=== PATIENT | female | born 1955 | race Caucasian/White ===

== ENCOUNTER 2023-06-04 18:05 | Emergency (ER) | payer OTHER, SELFPAY ==
[2023-06-04 18:19] VITALS: BP 115/67; PULSE 80; RESP 16; TEMP 37.1; O2SAT 100
--- NOTE | 2023-06-04 19:13 | ED.EXTPRO ---
HPI - Extremity Problem General Chief complaint: Extremity Problem,Nontraumatic Stated complaint: Right Finger Swelling Time Seen by Provider: 06/04/23 19:13 Source: patient Mode of arrival: ambulatory Limitations: no limitations History of Present Illness HPI Narrative: 67 y/o female with hx DM presented for c/o redness swelling and pain to right index finger. Onset last night. Denies injury. denies drainage. Reports decreased ROM due to the swelling. States she had a 'nodule' that has not caused any problems. Not taking anything for symptoms. Related Data Home Medications Medication Instructions Recorded Confirmed aspirin 81 mg tablet,delayed 81 mg DIRECTED 06/04/23 06/04/23 release atorvastatin 10 mg tablet 10 mg DIRECTED 06/04/23 06/04/23 dapagliflozin propanediol 5 mg 5 mg DIRECTED 06/04/23 06/04/23 tablet (Farxiga) lisinopril 2.5 mg tablet 2.5 mg DIRECTED 06/04/23 06/04/23 metformin 500 mg tablet 500 mg DIRECTED 06/04/23 06/04/23 Allergies Allergy/AdvReac Type Severity Reaction Status Date / Time No Known Allergies Allergy Verified 06/04/23 18:36 Review of Systems Review of Systems: CONSTITUTIONAL: Denies body aches, fever, chills CARDIOVASCULAR: Denies chest pain, palpitations, or edema. RESPIRATORY: Denies cough or dyspnea. GASTROINTESTINAL: Denies abdominal pain, nausea, vomiting, or diarrhea. SKIN: Denies rash, itching, or wounds. MUSCULOSKELETAL: Reports right finger swelling NEUROLOGIC: Denies headache, numbness, tingling, or weakness. PSYCH: Denies depression or anxiety. All systems reviewed & are unremarkable except as noted in HPI and below PMFSH Past Medical History Medical History (Updated 06/04/23 @ 20:05 by Tamara Garcia APRN) Diabetes Comments At time of signature, I have reviewed and agree with nursing past medical, surgical, social and family history unless otherwise noted. Please see nursing chart for further information. There is no relevant family history pertinent to the presenting complaint Exam Narrative: GENERAL: Well-appearing, well-nourished, and in no acute distress. CHEST: Speaks in full sentences. No respiratory distress. HEART: Regular rate and rhythm. Normal and equal peripheral pulses. EXTREMITIES: Right 2nd digit moderate swelling and erythema from proximal phalanx to tip; tender; pinpoint dried circular area over the DIP. Decreased ROM to finger due to pain/swelling. Hand has normal strength and sensation. Slight chronic deformity at DIP. No drainage. No open wounds, pulse palpable and equal bilaterally, skin warm, dry, pink. Capillary refill less than 3 seconds. SKIN: Warm, dry NEURO: Alert and oriented x3. PSYCH: Normal mood and affect Course Course Emergency Course: Patient is aware of diagnosis, understands and agrees to treatment plan. Anticipatory guidance given. Patient agrees to follow-up as directed and is aware of reasons to seek care at the emergency department. Portions of this record may have been created with voice recognition software Level of Care: Express Care Visit Vital Signs Vital signs: Vital Signs Temperature 98.7 F 06/04/23 18:19 Pulse Rate 80 06/04/23 18:19 Respiratory Rate 16 06/04/23 18:19 Blood Pressure 115/67 06/04/23 18:19 Pulse Oximetry 100 06/04/23 18:19 Temperature 98.7 F 06/04/23 18:19 Pulse Rate 80 06/04/23 18:19 Respiratory Rate 16 06/04/23 18:19 Blood Pressure 115/67 06/04/23 18:19 Pulse Oximetry 100 06/04/23 18:19 Reviewed MDM - Extremity (Nontraumatic) MDM Narrative Medical decision making narrative: Discussed physical exam findings with pt and discussed multiple etiologies. Reviewed Rx and Advised supportive measures. Discussed signs/symptoms to go to the ER at length. Pt is appropriate for outpt treatment and close f/u with pcp. v/u. Differential Diagnosis Differential diagnosis: Likely gout, cellulitis and other (osteoarthritis, rheu
== END 2023-06-04 19:25 | disposition home or self-care (01) ==
PROVIDERS: Emergency Provider Nurse Practitioner Family; PCP Family Medicine
DX: R22.31 Localized swelling, mass and lump, right upper limb (principal); E11.9 Type 2 diabetes mellitus without complications; Z79.84 Long term (current) use of oral hypoglycemic drugs; Z79.82 Long term (current) use of aspirin
CPT/HCPCS: 99213; G0463

== ENCOUNTER 2024-09-03 21:29 | Emergency (ER) | payer OTHER, SELFPAY ==
--- NOTE | ~2024-09-03 | XR_ITS ---
EXAMINATION: XR shoulder RT min 2V DATE: 09/04/2024 01:16 INDICATION: Fall. TECHNIQUE: 2 views of right shoulder were obtained. COMPARISON: None. FINDINGS: Alignment is normal. No fracture. The glenohumeral joint is not well profiled. There is mil d osteoarthritis of acromioclavicular joint. IMPRESSION: 1. Mild osteoarthritis of acromioclavicular joint. Reviewed, dictated and finalized at location A.
--- NOTE | ~2024-09-03 | XR_ITS ---
EXAMINATION: XR chest 1V portable DATE: 09/04/2024 01:16 INDICATION: Syncope. TECHNIQUE: A single frontal view of the chest was obtained. COMPARISON: None. FINDINGS: There is no pneumonia, pleural effusion, or pneumothorax. The heart size is normal. IMPRESSION: 1. No acute cardiopulmonary disease. Reviewed, dictated and finalized at location A.
--- NOTE | ~2024-09-03 | XR_ITS ---
EXAMINATION: XR hip RT 2V w AP pelvis DATE: 09/04/2024 01:16 INDICATION: Right hip pain. Fall. TECHNIQUE: An anteroposterior view the pelvis and 2 views of right hip were obtained. COMPARISON: None. FINDINGS: There is lateral uncovering of the right femoral head, consistent with developmental dyspla rell. There is severe right hip osteoarthritis including flattening of superior aspect of the femoral head. The left hip joint space is normal. There is lumbar levoscoliosis and severe spondylosis. IMPRESSION: 1. Severe right hip osteoarthritis. Reviewed, dictated and finalized at location A.
--- NOTE | 2024-09-03 21:30 | ECG_ITS ---
Test Date: 2024-09-03 21:47:37 Measurements Intervals [place] Rate: 67 P: 60 MN: 168 QRS: 22 QRSD: 92 T: 32 QT: 402 QTc: 427 Interpretive Statements SINUS RHYTHM NORMAL ECG No previous ECG available for comparison Electronically Signed On 09-04-2024 10:00:40 CDT by Nelson Alejandro M.D.
--- OUTSIDE RECORDS SUMMARY | 2024-09-03 21:31 | XMS_ITS | Encounter Summary ---
Author Organization [facility] Healthcare Address [address] [place] [address] Care Team Providers Care Supervisor Vegetable Farming Name Role Phone Zita Fuchs NP Primary Care Provider [phone] Encounter Details Date Type Department Care Team (Late st Contact Info) Description 08/17/[address] [facility] Orthopedics and Sports Medicine [address] [facility] [address] [place] [address] Jonathan Jacques MD [address] [place] [address] [address] [place] [address] Social History Tobacco Use Types Packs/Day Years Used Date Smoking Tobacco: Never Smokeless Tobacco: Never AUDIT-C Answer Date Recorded Q1: How often do you have a drink containing alc ohol? 2-4 times a month 09/01/2024 Q2: How many drinks containi ng alcohol do you have on a typical day when you are drinking? 1 or 2 09/01/2024 Q3: How often do you have si x or more drinks on one occasion? 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 2-4 times a month 09/01/2024 2:29 PM CDT Concetta Glover MA Q2: How many drinks containing alcohol do you have on a typical day when you are drinking? 1 or 2 09/01/2024 2:29 PM CDT Concetta Glover MA Q3: How often do you have six or more drinks on one occasion? Never 09/01/2024 2:29 PM CDT Concetta Glover MA documented as of this encounter Miscellaneous Notes * Telephone Encounter - Cynthia Gupta MA - 09/02/2024 3:42 PM CDT Surgery Clearance received from PCP for RTHA. * Telephone Encounter - Valentine Arellano MA - 08/17/2024 1:07 PM CDT 1. Have you ever had a total joint replacement before? no 2. Have you ever had a problem with anesthesia? vomiting 3. Do you have anyone at home who can care for you? yes 4. Do you have a preference of home health or outpatient therapy for the first two weeks? N/a 5. Lower extremity only Do you own a walker? yes 6. What Pharmacy do you prefer - [facility] 7. What outpatient therapy location do you prefer - N/a 8. Clearance need from: - PCP: Zita Fuchs NP - Pcat Instructor: - Cashier Tube Room: - Sidehand: - Neurologist: - Other: documented in this encounter Plan of Treatment Upcoming Encounters Date Type Department Care Team (Latest Contact Info) Description 09/13/2024 8:20 AM CDT Hospital Encounter [facility] Operating Room [address] [place] [address] Jonathan Jacques MD [address] [place] [address] [address] [facility] [place] [address] 09/13/2024 8:20 AM CDT - 09/13/2024 10:45 AM CDT Surgery [facility] Operating Room [address] [place] [address] Jonathan Jacques MD [address] [place] [address] [address] [place] [address] Right Total Hip Arthroplasty- Anterior Approach, Depuy- Actis, Omnitrac, Aquamantys, 1 liter beta rinse, Pt to go home Scheduled Procedures Name Priority Associated Diagnoses Date/Ti me ARTHROPLASTY TOTAL HIP - ANTERIOR APPROACH Primary osteoarthritis of right hip 09/13/2024 8:20 AM CDT documented as of this encounter Visit Diagnoses Not on filedocumented in this encounter Care Teams Supervisor Vegetable Farming Relationship Specialty Start Date End Date Zita Fuchs NP [address] [facility] [address] [place] [address] PCP - General Family Medicine 09/11/23 documented as of this encounter
--- OUTSIDE RECORDS SUMMARY | 2024-09-03 21:31 | XMS_ITS | Encounter Summary ---
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 2-4 times a month 09/01/2024 2:29 PM Concetta Busch MA Q2: How many drinks containing alcohol do you have on a typical day when you are drinking? 1 or 2 09/01/2024 2:29 PM Concetta Busch MA Q3: How often do you have six or more drinks on one occasion? Never 09/01/2024 2:29 PM Concetta Busch MA documented as of this encounter Medications at Time of Discharge acetaminophen ER (TYLENOL) 650 mg 8 hr tablet Take 1 tablet (650 mg total) by mouth every 8 (eight) hours as needed for pain atorvastatin (LIPITOR) 10 mg tablet 1 p.o. q.h.s. 90 tablet 1 11/18/2023 blood glucose diagnostic (glucose blood) stripIndications:T ype 2 diabetes mellitus with hyperglycemia, without long-term current use of insulin ([facility]) USE ONE STRIP DAILY TO TEST BLOOD SUGAR 100 each 3 04/06/2024 blood-glucose meter miscIndications:Ty pe 2 diabetes mellitus without complication, without long-term current use of insulin ([facility]) USE TO TEST BLOOD SUGAR ONCE DAILY 1 each 12/30/2022 dapagliflozin propanediol (Farxiga) 5 mg tabletIndications: Type 2 diabetes mellitus with hyperglycemia, without long-term current use of insulin ([facility]) Take 1 tablet (5 mg total) by mouth daily 90 tablet 1 09/01/2024 lancets (OneTouch Delica Plus Lancet) 33 gauge miscIndications:Ty pe 2 diabetes mellitus without complication, without long-term current use of insulin ([facility]) 1 each by other route daily 100 each 1 04/01/2023 lisinopriL (PRINIVIL,ZESTRIL) 2.5 mg tablet TAKE 1 TABLET BY MOUTH EVERY DAY 90 tablet 3 02/06/2024 meloxicam (MOBIC) 15 mg tabletIndications: Osteoarthritis TAKE 1 TABLET (15 MG TOTAL) BY MOUTH DAILY. 90 tablet 3 12/03/2023 metFORMIN (GLUCOPHAGE) 500 mg tablet TAKE 1 TABLET BY MOUTH TWICE A DAY 180 tablet 3 02/06/2024 omeprazole (PriLOSEC) 10 mg capsule Take 1 capsule (10 mg total) by mouth daily documented as of this encounter Discharge Disposition Disposition Code Departure Means Destination Discharge to home or self care documented in this encounter Plan of Treatment Upcoming Encounters Date Type Department Care Team (Latest Contact Info) Description 09/13/2024 8:20 AM CDT Hospital Encounter [facility] Operating Room [address] [place] [address] Jonathan Jacques MD [address] [facility] [address] [place] [address] 09/13/2024 8:20 AM CDT - 09/13/2024 10:45 AM CDT Surgery [facility] Operating Room [address] [place] [address] Jonathan Jacques MD [address] [facility] [address] [place] [address] Right Total Hip Arthroplasty- Anterior Approach, Depuy- Actis, Omnitrac, Aquamantys, 1 liter beta rinse, Pt to go home Pending Results Name Type Priority Associated Diagnoses Date /Time XR Chest Pa Lateral 2 Views Imaging Schedule Routine, Read Routine (OP Routine) Pre-operative exam 09/01/2024 8:41 AM CDT Scheduled Orders Name Type Priority Associated Diagnoses Orde r Schedule XR Chest Pa Lateral 2 Views Imaging Schedule Routine, Read Routine (OP Routine) Pre-operative exam Once for 1 Occurrences starting 09/01/2024 until 09/01/2024 Scheduled Procedures Name Priority Associated Diagnoses Date/Ti me ARTHROPLASTY TOTAL HIP - ANTERIOR APPROACH Primary osteoarthritis of right hip 09/13/2024 8:20 AM CDT documented as of this encounter Visit Diagnoses Diagnosis Pre-operative exam Unspecified pre-operative examination Primary osteoarthritis of right hip- Primary Primary osteoarthritis of right hip documented in this encounter Care Teams Commissary Manager Relationship Specialty Start Date End Date Zita Fuchs NP [address] [facility] [address] [place] [address] PCP - General Family Medicine 09/11/23 documented as of this encounter
--- OUTSIDE RECORDS SUMMARY | 2024-09-03 21:31 | XMS_ITS | Clinical Summary ---
Author Organization [facility] Address [address] [place] [address] Care Team Providers Care Electrical Prospecting Engineer Name Role Phone Unavailable Primary Care Provider Unavailabl e Social History Tobacco Use Types Packs/Day Years Used Date Smoking Tobacco: Never Assessed Comments Unknown Sex and Gender Information Value Date Recorded Sex Assigned at Not on file Legal Sex Female 8:27 PM CDT Gender Identity Not on file Sexual Orientation Not on file Plan of Treatment Health Maintenance Due Date Last Done Comments Colorectal Cancer Screening Colonoscopy (10 Years) 1957 Hepatitis C 10/01/1975 DTaP, Tdap and Td Vaccines ( 1 - Tdap) 1976 Mammogram Screening 1997 Zoster Vaccines (1 of 2) 10/01/2007 Dexa Scan (General) 2022 Pneumococcal Vaccine: 65+ Ye ars (1 of 1 - PCV) 2022 COVID-19 Vaccine ( - 2023-2 5 season) 2024 Influenza Adult (#1) 2024 RSV Immunization or 60+ Years (1 - 1-dose 75+ series) 2032 Meningococcal B Vaccine Aged Out No l onger eligible based on patient's age to complete this topic Meningococcal Vaccine Aged Out No angelia gino eligible based on patient's age to complete this topic RSV Immunizations Under 20 Months Aged Out No longer eligible based on patient's age to complete this topic
--- OUTSIDE RECORDS SUMMARY | 2024-09-03 21:31 | XMS_ITS | Encounter Summary ---
Author Organization [facility] Healthcare Address [address] [place] [address] Care Team Providers Care Staff Research Scientist Name Role Phone Zita Fuchs NP Primary Care Provider [phone] Reason for Referral * Cardiology (Routine) - Closed Specialty Diagnoses / Procedures Referred By Jeff carter Referred To Contact Diagnoses Pre-operative exam Procedures ECG 12 lead Jonathan Jacques MD [address] [place] [address] [address] [place] [address] Phone: tel: [address] [phone] Referral ID Status Reason Start Date Expiration Date Visits Re quested Visits Authorized [id number] Closed 08/17/2024 09/16/2025 1 1 Reason for Visit * Cardiology (Routine) - Closed Specialty Diagnoses / Procedures Referred By Jeff carter Referred To Contact Diagnoses Pre-operative exam Procedures ECG 12 lead Jonathan Jacques MD [address] [place] [address] [address] [address] Phone: tel: [address] [phone] Referral ID Status Reason Start Date Expiration Date Visits Re quested Visits Authorized [id number] Closed 08/17/2024 09/16/2025 1 1 Encounter Details Date Type Department Care Team (Latest Contact Info) Description 09/01/2024 9:02 AM CDT - 09/01/2024 11:59 PM CDT Hospital Encounter [facility] Cardiac Testing [address] [place] [address] Pre-operative exam Discharge Disposition: Discharge to home [...] on file 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 Gender Identity Not on file Sexual Orientation Not on file documented as of this encounter Functional Status * Audit-C Score Answer Date of Assessment Author 2 09/01/2024 2:29 PM Sarah Busch MA * Question Answer Date of Assessment [...] hyperglycemia, without long-term current use of insulin (HCC) USE ONE STRIP DAILY TO TEST BLOOD SUGAR 100 each 3 04/06/2024 blood-glucose meter miscIndications:Ty pe 2 diabetes mellitus without complication, without long-term current use of insulin ([facility]) USE TO TEST BLOOD SUGAR ONCE DAILY 1 each 12/30/2022 dapagliflozin propanediol (Farxiga) 5 mg tabletIndications: Type 2 diabetes mellitus with hyperglycemia, without long-term current use of insulin ([facility]) Take 1 tablet (5 mg total) by mouth daily 90 tablet 1 09/01/2024 lancets (OneTouch Delica Plus Lancet) 33 gauge miscIndications:Ty pe 2 diabetes mellitus without complication, without long-term current use of insulin ([facility]) 1 each by other route daily [...] Description 09/13/2024 8:20 AM CDT Hospital Encounter [facility] Operating Room 1 [place] [address] Jonathan Jacques MD [address] [facility] [address] [place] [address] 09/13/2024 8:20 AM CDT - 09/13/2024 10:45 AM CDT Surgery [facility] Operating Room [address] [place] [address] Jonathan Jacques MD [address] [facility] [address] [place] [address] Right Total Hip Arthroplasty- Anterior Approach, Depuy- Actis, Omnitrac, Aquamantys, 1 liter beta rinse, Pt to go home Scheduled Procedures Name Priority Associated Diagnoses Date/Ti la ARTHROPLASTY TOTAL HIP - ANTERIOR APPROACH Primary osteoarthritis of right hip 09/13/2024 8:20 AM CDT documented as of this encounter Procedures Procedure Name Priority Date/Time Associated Diagnosis Comments ECG 12-LEAD Routine 09/01/2024 9:19 AM CDT Pre-operative exam documented in this encounter Results * ECG 12 lead (09/01/2024 9:19 AM CDT) Ventricular Rate EKG/Min 80 BPM [facility] Atrial Rate 80 BPM [facility] NC-Interval (MSEC) 152 ms [facility] QRS-Interval (MSEC) 80 ms [facility] QT-Interval (MSEC) 378 ms [facility] QTc 435 ms [facility] P [place] 63 degrees [facility] R [place] 27 degrees [facility] T [place] 55 degrees [facility] Diagnosis Normal sinus rhythm Normal ECG When compared with ECG of 13-OCT-2014 16:56, No significant change was found Confirmed by BRADEN OVIEDO M.D. ([id number]) on 09/03/2024 2:00:01 PM [facility] 09/01/2024 9:19 AM CDT 09/03/2024 2:00 PM CDT us Jonathan Jacques MD ECG ORDERABLES Final Re sult [facility] documented in this encounter Visit Diagnoses Diagnosis Pre-operative exam Unspecified pre-operative examination Primary osteoarthritis of right hip- Primary Primary osteoarthritis of right hip documented in this encounter Care Teams Staff Research Scientist Relationship Specialty Start Date End Date Zita Fuchs NP [address] [facility] [address] [place] [address] PCP - General Family Medicine 09/11/23 documented as of this encounter
--- OUTSIDE RECORDS SUMMARY | 2024-09-03 21:31 | XMS_ITS | Encounter Summary ---
Author Organization [facility] Healthcare Address [address] [place] [address] Care Team Providers Care Sales Contract Administrator Name Role Phone Unavailable Primary Care Provider Unavailabl e Reason for Visit * Diagnostic Imaging (Routine) - Closed Specialty Diagnoses / Procedures Referred By Contac t Referred To Contact Procedures Breast Imaging Screening Outside Reference Referral, Self Referral ID Status Reason Start Date Expiration Date Visits Re quested Visits Authorized [id number] Closed 01/24/2022 02/23/2023 1 1 Encounter Details Date Type Department Care Team (Late st Contact Info) Description 03/06/2016 Hospital Encounter [facility] [address] [place] [id number] Social History Tobacco Use Types Packs/Day Years [...] on file 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 Gender Identity Not on file Sexual Orientation [...] Glover MA documented as of this encounter Plan of Treatment Upcoming Encounters Date Type Department Care Team (Latest Contact Info) Description 09/13/2024 8:20 AM CDT Hospital Encounter [facility] Operating Room 1 [place] [address] Jonathan Jacques MD [address] [facility] [address] [place] [address] 09/13/2024 8:20 AM CDT - 09/13/2024 10:45 AM CDT Surgery [facility] Operating Room [address] [place] [address] Jonathan Jacques MD [address] [facility] [address] [place] [address] Right Total Hip Arthroplasty- Anterior Approach, Depuy- Actis, Omnitrac, Aquamantys, 1 liter beta rinse, Pt to go home Scheduled Procedures Name Priority Associated Diagnoses Date/Ti me ARTHROPLASTY TOTAL HIP - ANTERIOR APPROACH Primary osteoarthritis of right hip 09/13/2024 8:20 AM CDT documented as of this encounter Procedures Procedure Name Priority Date/Time Associated Diagnosis Comments BREAST IMAGING MG SCREENING OUTSIDE REFERENCE Routine 03/06/2016 12:00 AM CDT documented in this encounter Results * Breast Imaging Screening Outside Reference (03/06/2016 12:00 AM CDT) Impressions RAD_MAMMO_[facility] - 01/24/2022 9:47 AM CDT These images are for Reference purposes only and have not been reviewed by [facility] Radiology. There will be no report generated by a [facility] Radiologist. Narrative RAD_MAMMO_[facility] - 01/24/2022 9:47 AM CDT EXAMINATION: Images For Reference Purposes Only us Self Referral IMG MAMMO PROCEDURES Final Resul t RAD[facility]MAMMO[facility] documented in this encounter Visit Diagnoses Not on filedocumented in this encounter
--- OUTSIDE RECORDS SUMMARY | 2024-09-03 21:31 | XMS_ITS | Clinical Summary ---
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 Name Role Phone LouisZita loco JOYCE Primary Care Provider [phone] Allergies Active Allergy Reactions Criticality Noted Date Comments Codeine Stomach upset Low 10/13/2014 Stomach/GI Upset Medications omeprazole (PriLOSEC) 10 mg capsule Take 1 capsule (10 mg total) by mouth daily Active acetaminophen ER (TYLENOL) 650 mg 8 hr tablet Take 1 tablet (650 mg total) by mouth every 8 (eight) hours as needed for pain Active blood-glucose meter miscIndications: Type 2 diabetes mellitus without complication, without long-term current use of insulin (HCC) USE TO TEST BLOOD SUGAR ONCE DAILY 1 each 3 Active lancets (OneTouch Delica Plus Lancet) 33 gauge miscIndications: Type 2 diabetes mellitus without complication, without long-term current use of insulin (HCC) 1 each by other route daily 100 each 1 3 Active atorvastatin (LIPITOR) 10 mg tablet 1 p.o. q.h.s. 90 tablet 1 4 Active meloxicam (MOBIC) 15 mg tabletIndication s:Osteoarthritis TAKE 1 TABLET (15 MG TOTAL) BY MOUTH DAILY. 90 tablet 3 4 Active lisinopriL (PRINIVIL,ZESTRI L) 2.5 mg tablet TAKE 1 TABLET BY MOUTH EVERY DAY 90 tablet 3 4 Active metFORMIN (GLUCOPHAGE) 500 mg tablet TAKE 1 TABLET BY MOUTH TWICE A DAY 180 tablet 3 4 Active blood glucose diagnostic (glucose blood) stripIndications :Type 2 diabetes mellitus with hyperglycemia, without long-term current use of insulin (HCC) USE ONE STRIP DAILY TO TEST BLOOD SUGAR 100 each 3 4 Active dapagliflozin propanediol (Farxiga) 5 mg tabletIndication s:Type 2 diabetes mellitus with hyperglycemia, without long-term current use of insulin (HCC) Take 1 tablet (5 mg total) by mouth daily 90 tablet 1 5 Active Farxiga 5 mg tabletIndication s:Type 2 diabetes mellitus without complication, without long-term current use of insulin (HCC) TAKE 1 TABLET (5 MG TOTAL) BY MOUTH DAILY. 90 tablet 1 4 09/02/19 Discontinu ed(Reorder ) Active Problems Problem Noted Date Diagnosed Date Primary osteoarthritis of right hip 09/01/2024 Assessment & Plan (09/01/2024 3:37 PM CDT): Scheduled for right total hip replacement due to socket and bone wear. Informed of risks, recovery time, and driving restrictions. Motivated for physical therapy. Surgery planned as outpatient, possible admission for monitoring. Insulin may replace oral diabetes medications if admitted. - Stop meloxicam 5 days before surgery. - Stop dapagliflozin 3 days before surgery. - Stop atorvastatin the day before surgery. - Do not take metformin on the day of surgery. - Continue lisinopril. - Arrange for a walker post-surgery. - Consider outpatient or home physical therapy post-surgery. - Discuss any questions with the surgeon before the operation. Type 2 diabetes mellitus wit h hyperglycemia, without long-term current use of insulin 04/02/2024 Assessment & Plan (09/01/2024 3:37 PM CDT): Stable Lab Results Component Value Date HGBA1C 6.1 (H) 09/01/2024 No results found for: SCRA1C Type 2 Diabetes Mellitus Diabetes well-controlled with A1c of 6.1%. Managed with oral medications. Informed of dietary importance. Insulin may be used if admitted post-surgery. - Continue metformin. - Continue dapagliflozin except as noted for surgery. - Monitor blood glucose levels regularly. Assessment & Plan (04/06/2024 8:57 PM CDT): Not at goal Lab Results Component Value Date HGBA1C 6.9 10/06/2023 Repeat labs ordered Continue metformin 500mg daily and Farxiga 5mg daily Mixed hyperlipidemia 10/06/2023 Assessment & Plan (04/06/2024 9:01 PM CDT): Stable Repeat lipid profile and cmp Lab Results Component Value Date CHOL 137 03/29/2023 CHOL 141 01/04/2023 CHOL 193 12/21/2022 Lab Results Component Value Date HDL 56 03/29/2023 HDL 61 01/04/2023 HDL 56 12/21/2022 Lab Results Component Value Date LDL 66 03/29/2023 LDL 61 01/04/2023 LDL 116 (H) 12/21/2022 Lab Results Component Value Date TRIG 72 03/29/2023 TRIG 109 01/04/2023 TRIG 105 12/21/2022 No results found for: POCCHDLR No results found for: POCNONHDL No results found for: POCCHLPL Continue atorvastatin 10mg HS Assessment & Plan (10/06/2023 4:34 PM CDT): Stable Continue lipitor 10mg Primary hypertension 10/06/2023 Assessment & Plan (04/06/2024 9:01 PM CDT): Stable Repeat labs ordered BP Readings from Last 1 Encounters: 04/06/24 108/67 BP Goal: <64yo: <130/90, 65>: 140/90 Continue lisinopril 2.5mg Assessment & Plan (10/06/2023 4:34 PM CDT): Stable BP at goal Continue lisinopril 2.5mg Eye pain, left 12/26/2022 Overview (12/26/2022): Intermittent See optho no issues at the present time Pain of right hip 12/26/2022 Assessment & Plan (04/06/2024 9:00 PM CDT): Not at goal Advised to keep appt with ortho. May be able to call and be seen sooner. XR Discussed increasing Tylenol to TID PRN, adding topicals to regimen as well Refer to PT Assessment & Plan (10/06/2023 4:33 PM CDT): Not well controlled Continue Tylenol Arthritis. Stop ibuprofen. Start meloxicam 15mg New referral to ortho. Previous xr showed narrowing of joint space Assessment & Plan (12/26/2022 10:42 AM CDT): X ray Chronic issue Worsening Chronic pain of both knees 12/26/2022 Assessment & Plan (04/01/2023 8:03 AM CDT): Severe joint space narrowing in the medial joint of the bilateral knees. I will set her up with ortho Assessment & Plan (12/26/2022 10:44 AM CDT): Chronic worsening X ray b knees Uric acid Rf Merry Sed rate Post-menopause 12/26/2022 Assessment & Plan (12/26/2022 10:47 AM CDT): Check a bone density Primary osteoarthritis of both knees 11/15/2020 Assessment & Plan (04/06/2024 9:00 PM CDT): Not at goal Advised to keep appt with ortho. May be able to call and be seen sooner. Discussed steroid injections do not last long and can be given more frequently if she is getting good relief. Discussed increasing Tylenol to TID PRN, adding topicals to regimen as well Refer to PT Assessment & Plan (10/06/2023 4:33 PM CDT): Not well controlled Continue Tylenol Arthritis. Stop ibuprofen. Start meloxicam 15mg New referral to ortho. Previous xr showed severe OA on L and mild to mod on R Resolved Problems Problem Noted Date Diagnosed Date Resolved Date Annual physical exam 12/26/2022 023 Assessment & Plan (12/26/2022 10:34 AM CDT): Meds reviewed and reconciled Type 2 diabetes mellitus wit hout complication, without long-term current use of insulin 12/26/2022 04/02/2024 Assessment & Plan (10/06/2023 4:32 PM CDT): Controlled A1c 6.9 in office Continue metformin 500mg BID, Farxiga 5mg Assessment & Plan (04/01/2023 8:03 AM CDT): A1c is markedly improved. Assessment & Plan (12/26/2022 10:40 AM CDT): Add metformin 500 mg bid Accuchecks bid Add basa Add lisinopril 2.5 mg Add lipitor 10 mg daily Sma 7 1 week Sma 7 Lipid Lft A1c in 3 months with a uacr Encounters Date Type Department Care Team Description 09/01/2024 2:30 PM CDT Office Visit [facility] [place] [address] [place] [address] Zita Fuchs NP Primary osteoarthritis of right hip (Primary Dx); Type 2 diabetes mellitus with hyperglycemia, without long-term current use of insulin (HCC) 09/01/2024 9:30 AM CDT Lab [facility] [address] [place] [address] Pre-operative exam 09/01/2024 9:02 AM CDT - 09/01/2024 11:59 PM CDT Hospital Encounter [facility] Cardiac Testing [address] [place] [address] Pre-operative exam Discharge Disposition: Discharge to home or self care 09/01/2024 8:25 AM CDT - 09/01/2024 11:59 PM CDT Hospital Encounter [facility] [address] [place] [address] Pre-operative exam Discharge Disposition: Discharge to home or self care 08/18/2024 Telephone [facility] Medicine [address] [place] [address] Jonathan Jacques MD disaiblity paperwork 08/17/2024 10:00 AM CDT Office Visit [facility] [address] [place] [address] [address] [place] [address] Jonathan Jacques MD Pre-operative exam (Primary Dx); Pain in both knees, unspecified chronicity; Primary osteoarthritis of right hip; Primary osteoarthritis of left knee; Primary osteoarthritis of right knee 08/17/2024 7:44 AM CDT - 08/17/2024 11:59 PM CDT Hospital Encounter [facility] [address] [place] [address] [address] [place] [address] Discharge Disposition: Discharge to home or self care 08/17/2024 Telephone [facility] [address] [place] [address] [address] [place] [address] Jonathan Jacques MD 08/17/2024 Telephone [facility] [address] [place] [address] [address] [address] Jonathan Jacques MD 08/10/2024 Telephone [facility] [address] [place] [address] [address] [place] [address] Jonathan Jacques MD Appointment 08/09/2024 3:41 PM STOCK CLERK - 08/09/2024 11:59 PM STOCK CLERK Hospital Encounter [facility] [address] [place] [address] Pain of right hip Discharge Disposition: Discharge to home or self care 08/09/2024 3:15 PM STOCK CLERK Office Visit [facility] [address] [place] [phone] Constantin Cervantes, Primary osteoarthritis of right hip (Primary Dx); Pain of right hip; Primary osteoarthritis of both knees from Last 3 Months Immunizations Immunization Administration Dates Next Due Influenza, Unspecified 03/16/2024,2022,03/28/2022(Deferr ed: Patient Refused) Pfizer SARS-CoV-2 Monovalent Vaccination (12+ Yrs) PURPLE 09/17/2020,08/22/2020 Surgical History Surgery Date Site/Laterality Comments HERNIA REPAIR Right BUNIONECTOMY Bilateral Medical History Medical History Date Comments Diabetes mellitus (HCC) Family History Medical History Relation Name Comments Diabetes Father Heart disease Father Lung disease Mother Breast cancer Sister Colon cancer Neg Hx Ovarian cancer Neg Hx Uterine cancer Neg Hx Relation Name Status Comments Father Mother Sister Alive Social History Tobacco Use Types Packs/Day Years Used Date Smoking Tobacco: Never Smokeless Tobacco: Never Tobacco Cessation:Counseling Given: Not Answered AUDIT-C Answer Date Recorded Q1: How often [...] on file Legal Sex Female 7:05 PM STOCK CLERK Gender Identity Not on file Sexual Orientation Not on file Obstetrics History Para Term AB IAB SAB Ectopic Multiple Livin g Live Births 3 3 3 3 3 Date Outcome GA Total Labor Labor/2nd/3rd Weight Sex Type Anes PTL Lakshmi A1 A5 Name Clin Term Vag-S pont Living Term Vag-S pont Living Term Vag-S pont Living Last Filed Vital Signs Vital Sign Reading Time Taken Comments Blood Pressure 116/78 09/01/2024 2:22 PM CDT Pulse 84 09/01/2024 2:22 PM CDT Temperature 36.7 C (98.1 F) 09/01/2024 2:22 PM CDT Respiratory Rate 18 09/01/2024 2:22 PM CDT Oxygen Saturation 98% 09/01/2024 2:22 PM CDT Inhaled Oxygen Concentration - - Weight 64.2 kg (141 lb 8 oz) 09/01/2024 2:22 PM CDT Height 154.9 cm (5' 0.98 ) 09/01/2024 2:22 PM CD T Body Mass Index 26.75 09/01/2024 2:22 PM CDT Plan of Treatment Upcoming Encounters Date Type Department Care Team (Latest Contact Info) Description 09/13/2024 8:20 AM CDT Hospital Encounter [facility] Operating Room [address] [place] [address] Jonathan Jacques MD [address] [place] [address] [address] [place] [address] 09/13/2024 8:20 AM CDT - 09/13/2024 10:45 AM CDT Surgery [facility] Operating Room [address] [place] [address] Jonathan Jacques MD [address] [place] [address] [address] [place] [address] Right Total Hip Arthroplasty- Anterior Approach, Depuy- Actis, Omnitrac, Aquamantys, 1 liter beta rinse, Pt to go home Scheduled Procedures Name Priority Associated Diagnoses Date/Ti me ARTHROPLASTY TOTAL HIP - ANTERIOR APPROACH Primary osteoarthritis of right hip 09/13/2024 8:20 AM CDT Health Maintenance Due Date Last Done Comments Dilated Eye Exam 1955 Foot Exam 1955 DTaP/Tdap/Td Vaccine (1 - Tdap) 1968 Pneumococcal vaccine 65+ (1 of 2 - PCV) 1976 Zoster Vaccine (1 of 2) 10/01/2007 Covid-19 Vaccine (3 - season) 2024 09/17/2020, 08/22/2020 Breast Cancer Screening-Mammogram 04/01/2024 04/01/2023, 01/21/2022, 03/06/2016, Additional history exists Well Visit 65+ 04/01/2024 04/01/2023, 07/2 , 11/16/2021 Hemoglobin A1C 03/04/2025 09/01/2024, 11/0 02/2024, 10/06/2023, Additional history exists Depression Screening 04/06/2025 04/06/2024, 12/26/2022, 11/16/2021, Additional history exists Fall Risk Assessment 04/06/2025 04/06/2024, 12/27/19 23 Albumin Creatinine Ratio, Urine 04/17/2025 04/17/2024, 03/29/2023, 01/04/2023 Lipid Panel 04/17/2025 04/17/2024, 1006/2022, 01/04/2023, Additional history exists eGFR 09/01/2025 09/01/2024, 0 02/2024, 10/04/2023, Additional history exists Osteoporosis Screening-Bone Density Scan 12/18/2025 12/19/2023 Colon Cancer Screening-Colonoscopy 08/06/2028 Postponed from 1957 (Patient declined, but will receive in the future) Hepatitis C Screening Completed 01/04/2023 Cervical Cancer Screening Discontinued 04/01/2023, Influenza Vaccine Completed 03/16/2024, 03/18/2023 Hepatitis B Screening Completed 04/17/2024 Procedures Procedure Name Priority Date/Time Associated Diagnosis Comments EGFR Routine 09/01/2024 9:43 AM CDT Pre-operative exam DIFFERENTIAL AUTO Routine 09/01/2024 9:4 3 AM CDT Pre-operative exam CBC WITH AUTO DIFFERENTIAL Routine 09/01/2024 9:43 AM CDT Pre-operative exam COMPREHENSIVE METABOLIC PANEL Routine 09/01/2024 9:43 AM CDT Pre-operative exam HEMOGLOBIN A1C Routine 09/01/2024 9:43 AM CDT Pre-operative exam URINALYSIS AND REFLEX TO MICROSCOPIC AND CULTURE Routine 09/01/2024 9:33 AM CDT Pre-operative exam ECG 12-LEAD Routine 09/01/2024 9:19 AM CDT Pre-operative exam XR HIP RIGHT W PELVIS 2 OR 3 VIEWS Schedule Routine, Read Routine (OP Routine) 08/09/2024 3:49 PM STOCK CLERK Pain of right hip LIPID PANEL Routine 04/17/2024 9:20 AM STOCK CLERK Mixed hyperlipidemia ALBUMIN CREATININE RATIO, URINE Routine 04/17/2024 9:20 AM STOCK CLERK Type 2 diabetes mellitus with hyperglycemia, without long-term current use of insulin (HCC) DEXA AXIAL SKELETON BONE DENSITY 1 OR MORE SITES Schedule Routine, Read Routine (OP Routine) 12/19/2023 8:15 AM CDT Post-menopausal SCREENING MAMMOGRAM BILATERAL W GUIDO Schedule Routine, Read Routine (OP Routine) 04/01/2023 3:12 PM CDT Encounter for screening mammogram for malignant neoplasm of breast HIGH RISK HPV DNA DETECTION WITH GENOTYPING Routine 04/01/2023 1:50 PM CDT Well woman exam HEPATITIS C ANTIBODY Routine 01/04/2023 7:31 AM CDT from Last 3 Months or Most Recently Relevant to Health Maintenance Results * eGFR (09/01/2024 9:43 AM CDT) eGFR >90 >=60 mL/min/1. 73 m2 Comment: Interpretive Data Reference Interval Normal >/= 90 mL/min/1.73m2 Mildly decreased* 60 - 89 mL/min/1.73m2 Mildly to moderately decreased 45 - 59 mL/min/1.73m2 Moderately to severely decreased 30 - 44 mL/min/1.73m2 Severely decreased 15 - 29 mL/min/1.73m2 Kidney Failure < 15 mL/min/1.73m2 *Relative to young adult level Estimated glomerular filtration rate is determined by the 2020 CKD-EPI equation recommended by the National Kidney Foundation (A Unifying Approach to GFR Estimation: Recommendations of the NKF-ASK Task Force on Reassessing the Inclusion of Race in Diagnosing Kidney Disease, JASN 2020). The CKD-EPI equation should not be used for patients with unstable renal function and has not been validated in children and those over 70. Current interpretive data was last reviewed 2021. Blood 09/01/2024 9:43 AM CDT 09/01/2024 10:08 AM CDT Jonathan Jacques MD LAB BLOOD ORDERABLES Fin al Result [facility] [address] Department [place] [address] * (ABNORMAL) Differential, auto (09/01/2024 9:43 AM CDT) Neutrophil abs 5.5 1.5 - 6.5 K/cumm Imm gran abs 0.0 0.0 - 0.1 K/cumm [facility] Lymphocyte abs 0.7(L) 0.8 - 3.3 K/cumm [facility] Monocyte abs 0.5 0.2 - 0.8 K/cumm [facility] Eosinophil abs 0.1 0.0 - 0.5 K/cumm [facility] Basophil abs 0.0 0.0 - 0.1 K/cumm [facility] Neutrophil pct 80.7 % [facility] Comment: Interpretive Data Percent cell count reference ranges are not reported, since discordance with absolute values may lead to misinterpretation of CBC data. Current Interpretive Data was last revised on 2017. Imm gran pct 0.3 % [facility] Comment: Interpretive Data Percent cell count reference ranges are not reported, since discordance with absolute values may lead to misinterpretation of CBC data. Current Interpretive Data was last revised on 2017. Lymphocyte pct 10.3 % [facility] Comment: Interpretive Data Percent cell count reference ranges are not reported, since discordance with absolute values may lead to misinterpretation of CBC data. Current Interpretive Data was last revised on 2017. Monocyte pct 6.7 % [facility] Comment: Interpretive Data Percent cell count reference ranges are not reported, since discordance with absolute values may lead to misinterpretation of CBC data. Current Interpretive Data was last revised on 2017. Eosinophil pct 1.6 % [facility] Comment: Interpretive Data Percent cell count reference ranges are not reported, since discordance with absolute values may lead to misinterpretation of CBC data. Current Interpretive Data was last revised on 2017. Basophil pct 0.4 % [facility] Comment: Interpretive Data Percent cell count reference ranges are not reported, since discordance with absolute values may lead to misinterpretation of CBC data. Current Interpretive Data was last revised on 2017. Blood 09/01/2024 9:43 AM CDT 09/01/2024 10:08 AM CDT Jonathan Jacques MD LAB BLOOD ORDERABLES Fin al Result Performing Organization Address [facility] Co de Phone Number ARI [address] [place] [address] * CBC with auto differential (09/01/2024 9:43 AM CDT) WBC 6.9 3.8 - 9.9 K/cumm Hgb 14.2 11.9 - 15.5 g/dL [facility] Hct 41.5 35.6 - 45.5 % [facility] Plt 281 150 - 400 K/cumm [facility] MPV 9.2 9.1 - 12.3 fL [facility] RBC 4.41 3.90 - 5.20 M/cumm [facility] MCV 94.1 81.3 - 96.4 fL [facility] MCH 32.2 27.1 - 33.3 pg [facility] MCHC 34.2 32.3 - 35.7 g/dL [facility] RDW CV 11.9 11.1 - 14.9 % [facility] RDW SD 41.6 35.7 - 48.1 fL [facility] NRBC abs 0.00 0.00 - 0.01 K/cumm [facility] Blood 09/01/2024 9:43 AM CDT 09/01/2024 10:08 AM CDT Jonathan Jacques MD LAB BLOOD ORDERABLES Fin al Result Performing Organization Address [facility]/ZIP Co de Phone Number ARI [address] [place] [address] * (ABNORMAL) Hemoglobin A1c (09/01/2024 9:43 AM CDT) Hgb A1C 6.1(H) 4.0 - 5.6 % Estimated Average Glucose 128 mg/dL [facility] Comment: The ADA recommends reporting an estimated Average Glucose (eAG) with all Hemoglobin A1c results using the equation derived from a study of 507 normal and diabetic adults. Minority populations were underrepresented and children were not included. (Diabetes Care 31:4493-8957, 2008). The eAG is not equivalent to a fasting glucose. Blood 09/01/2024 9:43 AM CDT 09/01/2024 10:08 AM CDT Jonathan Jacques MD LAB BLOOD ORDERABLES Fin al Result [facility] [address] Department [place] [address] * Comprehensive metabolic panel (09/01/2024 9:43 AM CDT) Sodium 140 135 - 145 mmol/L Potassium, pl 4.1 3.3 - 4.9 mmol/L [facility] Chloride 103 97 - 110 mmol/L [facility] CO2 25 22 - 32 mmol/L [facility] Anion gap 12 2 - 15 mmol/L [facility] BUN 19 6 - 25 mg/dL [facility] Creatinine 0.63 0.60 - 1.10 mg/dL [facility] Glucose 110 70 - 199 mg/dL [facility] Comment: Interpretive Data Fasting glucose >/= 126 mg/dl is diagnostic for diabetes. Fasting is defined as no caloric intake for at least 8 hours. Fasting glucose between 100 mg/dl to 125 mg/dl is diagnostic of prediabetes. In a patient with classic symptoms of hyperglycemia or hyperglycemic crisis, a random glucose >/= 200 mg/dl is diagnostic for diabetes. In the absence of unequivocal hyperglycemia, results should be confirmed by repeat testing. The classification and Diagnosis of Diabetes Diabetes Care 202; 46: S19-S40. Current interpretive data was last revised 2022. Calcium 9.7 8.5 - 10.3 mg/dL [facility] Bilirubin, total 0.3 0.1 - 1.2 mg/dL [facility] Protein, pl 7.7 6.5 - 8.5 g/dL [facility] Albumin 4.4 3.5 - 5.0 g/dL [facility] Alk phos 91 40 - 130 Units/L [facility] ALT 18 7 - 45 Units/L [facility] AST 18 10 - 45 Units/L [facility] Blood 09/01/2024 9:43 AM CDT 09/01/2024 10:08 AM CDT Jonathan Jacques MD LAB BLOOD ORDERABLES Fin al Result Performing Organization Address [facility] de Phone Number ARI [address] [place] [phone] * Urinalysis reflex to microscopic and culture Urine (09/01/2024 9:33 AM CDT) Color, ur Yellow Yellow Clarity, ur Clear Clear [facility] Specific gravity, ur 1.016 1.003 - 1.030 [facility] pH, urine 6.5 [facility] Comment: Interpretive Data U rine pH is affected by diet, medications, systemic acid-base disturbances, and renal tubular function. pH may affect urinary stone formation. For example, urine pH below 6.0 may help reduce the tendency for calcium phosphate stones and pH greater than 6.0 may reduce the tendency for uric acid stone formation. Source: [facility] Current Interpretive Data was last revised on 2017 Protein, ur ql Negative Negative [facility] Glucose, ur ql Negative Negative [facility] Ketones, ur Trace Negative [facility] Bilirubin, ur Negative Negative [facility] Blood, ur Negative Negative [facility] Urobilinogen, ur <2.0 <2.0 mg/dL [facility] Nitrite, ur Negative Negative [facility] Leukocyte esterase, ur Negative Negative [facility] UA reflex comment Reflex conditions for microscopic UA and culture not met. [facility] Urine 09/01/2024 9:33 AM CDT 09/01/2024 10:13 AM CDT Jonathan Jacques MD LAB MICROBIOLOGY - GENER AL ORDERABLES Final Result Performing Organization Address [facility] Co de Phone Number ARI [address] [place] [address] [place] [address] * ECG 12 lead (09/01/2024 9:19 AM CDT) Ventricular Rate EKG/Min 80 BPM [facility] Atrial Rate 80 BPM [facility] NC-Interval (MSEC) 152 ms [facility] QRS-Interval (MSEC) 80 ms [facility] QT-Interval (MSEC) 378 ms [facility] QTc 435 ms [facility] [facility] P [place] 63 degrees [facility] R [place] 27 degrees [facility] T [place] 55 degrees [facility] Diagnosis Normal sinus rhythm Normal ECG When compared with ECG of 13-OCT-2014 16:56, No significant change was found Confirmed by BRADEN OVIEDO M.D. ([id number]) on 09/03/2024 2:00:01 PM [facility] 09/01/2024 9:19 AM CDT 09/03/2024 2:00 PM CDT us Jonathan Jacques MD ECG ORDERABLES Final Re sult [facility] * XR Hip Right 2 or 3 Views W Pelvis (08/09/2024 3:49 PM STOCK CLERK) Anatomical Region Laterality Modality Lower Extremities, Hip, Pelvis Right C omputed Radiography 08/12/2024 12:3 4 PM STOCK CLERK Narrative 08/12/2024 12:35 PM STOCK CLERK EXAM DESCRIPTION: XR HIP RIGHT 2 OR 3 VIEWS W PELVIS REASON FOR STUDY: pain Increased general hip pain for 6 months, no injury FINDINGS: Two views of the right hip and pelvis are submitted for interpretation and compared to prior 12/26/2022. Worsened severe right hip arthrosis is present with worsened collapse and remodeling of the superolateral femoral head and remodeling of the acetabulum. Mild left hip osteoarthritis. Superolateral subluxation of the femoral head is present. IMPRESSION: Worsened severe right hip arthrosis with worsened collapse and remodeling of the superolateral femoral head, remodeling of the acetabulum and subluxation of the femoral head. These findings are all likely secondary to progressive severe right hip osteoarthritis. However, if concern for infection, aspiration is recommended. THIS IS AN ELECTRONICALLY VERIFIED FINAL REPORT 08/12/2024 12:35 PM - Electronically signed by Stas Garcia M.D. TH T: Report ID: [id number] Reading Location: [id number] Procedure Note Stas Garcia MD - 08/12/2024 EXAM DESCRIPTION: XR HIP RIGHT 2 OR 3 VIEWS W PELVIS REASON FOR STUDY: pain Increased general hip pain for 6 months, no injury FINDINGS: Two views of the right hip and pelvis are submitted for interpretation and compared to prior 12/26/2022. Worsened severe right hip arthrosis is present with worsened collapse and remodeling of the superolateral femoral head and remodeling of theacetabulum. Mild left hip osteoarthritis. Superolateral subluxation of the femoralhead is present. IMPRESSION: Worsened severe right hip arthrosis with worsened collapse and remodelingof the superolateral femoral head, remodeling of the acetabulum andsubluxation of the femoral head. These findings are all likely secondary toprogressive severe right hip osteoarthritis. However, if concern for infection, aspiration is recommended. THIS IS AN ELECTRONICALLY VERIFIED FINAL REPORT 08/12/2024 12:35 PM - Electronically signed by Stas Garcia M.D. T: Report ID: [id number] Reading Location: [place] [address] Constantin Cervantes DO IMG XR PROCEDURES Final Result * (ABNORMAL) Albumin Creatinine Ratio, Urine (04/17/2024 9:20 AM STOCK CLERK) Creatinine, ur 17(L) 20 - 275 mg/dL [facility] Microalbumin, ur <0.2 See Note: mg/dL [facility] Comment: Reference Range: Reference Range Not established Microalbumin/creat ratio NOTE <30 mg/g creat [facility] Comment: NOTE: The urine albumin value is less than 0.2 mg/dL therefore we are unable to calculate excretion and/or creatinine ratio. The ADA defines abnormalities in albumin excretion as follows: Albuminuria Category Result (mg/g creatinine) Normal to Mildly increased <30 Moderately increased 30-299 Severely increased > OR = 300 The ADA recommends that at least two of three specimens collected within a 3-6 month period be abnormal before considering a patient to be within a diagnostic category. Urine 04/17/2024 9:2 0 AM STOCK CLERK 04/17/2024 9:21 AM STOCK CLERK Narrative [facility] - 04/18/2024 8:19 AM STOCK CLERK FASTING:YES FASTING: YES us Zita Fuchs BRICK CATCHER LAB URINE ORDERABLES Final Re sult YUAN [facility] [address] [id number] * Lipid panel (04/17/2024 9:20 AM STOCK CLERK) Cholesterol 163 <200 mg/dL [facility] HDL 59 > OR = 50 mg/dL [facility] Triglycerides 89 <150 mg/dL [facility] LDL 86 mg/dL (calc) [facility] Comment: Reference range: <100 Desirable range <100 mg/dL for primary prevention; <70 mg/dL for patients with CHD or diabetic patients with > or = 2 CHD risk factors. LDL-C is now calculated using the Rich-Ramirez calculation, which is a validated novel method providing better accuracy than the Friedewald equation in the estimation of LDL-C. Rich SS et al. RY. 2013;310(19): 7662-0157 (http://education.Lingua.ly/faq/BZI902) Chol/HDL ratio 2.8 <5.0 (calc) [facility] Non-HDL, (LDL+VLDL) 104 <130 mg/dL (calc) [facility] Comment: For patients with diabetes plus 1 major ASCVD risk factor, treating to a non-HDL-C goal of <100 mg/dL (LDL-C of <70 mg/dL) is considered a therapeutic option. Blood 04/17/2024 9:20 AM STOCK CLERK 04/17/2024 9:21 AM STOCK CLERK Narrative [facility] - 04/18/2024 8:19 AM STOCK CLERK FASTING:YES FASTING: YES us Zita Fuchs NP LAB BLOOD ORDERABLES Final Re sult [facility] [address] [address] [facility] [place] [address] * Dexa Axial Skeleton Bone Density 1 or 2 Site (12/19/2023 8:15 AM CDT) Anatomical Region Laterality Modality Body N/A Mammography 12/19/2023 9:10 PM CDT Narrative 12/19/2023 9:11 PM CDT EXAM DESCRIPTION: DEXA AXIAL SKELETON BONE DENSITY 1 OR MORE SITES REASON FOR STUDY: 68 y/o year old F with given history of: post menopausal Eyeletter/Model: Leadhit A (S/N [id number]) CLINICAL INFORMATION: Current height: 62 inches Maximum height: 64 inches Weight: 148 pounds Risk factors: Postmenopausal COMPARISON: None available FINDINGS: AP LUMBAR SPINE L1-L4: Total BMD is 0.872 g/cm2 T-score is -1.6 LEFT HIP: Total BMD is 0.732 g/cm2 T-score is -1.7 Femoral neck BMD is 0.660 g/cm2 T-score is -1.7 FRAX: 10 year risk for a major osteoporotic fracture is 9.4 %, 10 year risk for a hip fracture is 1.1 % IMPRESSION: Low Bone Mass. REFERENCE: Bone mineral density: T-Score: Normal (T-score above or = -1.0) Low bone mass (T-score between -1.0 and -2.5) replaces the previously used term osteopenia Osteoporosis (T-score = or below -2.5) Z-Score: Within the expected range for age (Z-score above -2.0) Below the expected range for age (Z-score is -2.0 or below) Please see below follow up recommendations. Medical evaluation for secondary causes of low bone mineral density may be appropriate. FRAX is a World Health Organization validated fracture risk assessment tool that calculates a person's 10 year probability of a major osteoporosis related fracture and hip fracture. According to the National Osteoporosis Foundation guidelines, postmenopausal women and men age 50 or older with low bone mass and a 10 year probability of a major osteoporosis related fracture = or greater than 20% or a 10 year probability of a hip fracture = or greater than 3% should be considered for pharmacological treatment for the prevention of osteoporosis. For further information, including treatment recommendations, please refer to the 2019 ISCD Official Positions (http://www.iscd.org) and the NOF's Clinician's Guide to Prevention and Treatment of Osteoporosis (http://www.nof.org/professionals/clinical-guidelines) THIS IS AN ELECTRONICALLY VERIFIED FINAL REPORT 12/19/2023 9:11 PM - Electronically signed by Jimenez Jordan M.D. MF: YESI Report ID: [id number] Reading Location: [id number] Procedure Note Jimenez Jordan MD - 12/19/2023 EXAM DESCRIPTION: DEXA AXIAL SKELETON BONE DENSITY 1 OR MORE SITES REASON FOR STUDY: 68 y/o year old F with given history of: post menopausal Eyeletter/Model: Leadhit A (S/N [id number]) CLINICAL INFORMATION: Current height: 62 inches Maximum height: 64 inches Weight: 148 pounds Risk factors: Postmenopausal COMPARISON: None available FINDINGS: AP LUMBAR SPINE L1-L4: Total BMD is 0.872 g/cm2 T-score is -1.6 LEFT HIP: Total BMD is 0.732 g/cm2 T-score is -1.7 Femoral neck BMD is 0.660 g/cm2 T-score is -1.7 FRAX: 10 year risk for a major osteoporotic fracture is 9.4 %, 10 year risk fora hip fracture is 1.1 % IMPRESSION: Low Bone Mass. REFERENCE: Bone mineral density: T-Score: Normal (T-score above or = -1.0) Low bone mass (T-score between -1.0 and -2.5) replaces thepreviously used term osteopenia Osteoporosis (T-score = or below -2.5) Z-Score: Within the expected range for age (Z-score above -2.0) Below the expected range for age (Z-score is -2.0 or below) Please see below follow up recommendations. Medical evaluation forsecondary causes of low bone mineral density may be appropriate. FRAX is a World Health Organization validated fracture risk assessmenttool that calculates a person's 10 year probability of a major osteoporosisrelated fracture and hip fracture. According to the National OsteoporosisFoundation guidelines, postmenopausal women and men age 50 or older with low bonemass and a 10 year probability of a major osteoporosis related fracture = or greater than 20% or a 10 year probability of a hip fracture = or greaterthan 3% should be considered for pharmacological treatment for the preventionof osteoporosis. For further information, including treatment recommendations, please referto the 2019 ISCD Official Positions (http://www.iscd.org) and the NOF's Clinician's Guide to Prevention and Treatment of Osteoporosis (http://www.nof.org/professionals/clinical-guidelines) THIS IS AN ELECTRONICALLY VERIFIED FINAL REPORT 12/19/2023 9:11 PM - Electronically signed by Jimenez Jordan M.D. MF: YESI Report ID: [id number] Reading Location: [place] [address] Zita Fuchs BRICK CATCHER IMG DXA PROCEDURES Final Resu lt * Screening Mammogram Bilateral W Guido (04/01/2023 3:12 PM CDT) Anatomical Region Laterality Modality Breast Bilateral Mammography Narrative 04/02/2023 10:46 AM CDT Mammogram Technique: Bilateral Digital Breast Tomosynthesis, Bilateral C-view 2D Screening mammogram. Views obtained: bilateral craniocaudal and bilateral mediolateral oblique. Computer Aided Detection was performed. Mammogram Findings: The present examination has been compared to prior imaging studies performed at [facility] on 12/30/2005 and 01/21/2022, and at [facility] on 03/06/2016. The breasts are heterogeneously dense, which may obscure small masses. There is no suspicious abnormality in either breast. Impression: There is no mammographic evidence of malignancy. Annual screening mammography is recommended.If supplemental screening is desired, breast MRI would be recommended in this patient with heterogeneously dense breasts. OVERALL FINAL ASSESSMENT: BI-RADS CATEGORY 1: Negative. Procedure Note Shobha Umana MD - 04/02/2023 Mammogram Technique: Bilateral Digital Breast Tomosynthesis, Bilateral C-view 2D Screening mammogram. Views obtained: bilateral craniocaudal and bilateral mediolateral oblique. Computer Aided Detection was performed. Mammogram Findings: The present examination has been compared to prior imaging studies performed at [facility] on 12/30/2005 and 01/21/2022, and at [facility] on 03/06/2016. The breasts are heterogeneously dense, which may obscure small masses. There is no suspicious abnormality in either breast. Impression: There is no mammographic evidence of malignancy. Annual screening mammography is recommended.If supplemental screening is desired, breast MRI would be recommended in this patient with heterogeneously dense breasts. OVERALL FINAL ASSESSMENT: BI-RADS CATEGORY 1: Negative. Prem Caballero DO IMG MAMMO PROCEDURES Fin al Result * High Risk HPV DNA Detection with Genotyping (Molecular component) (04/01/2023 1:50 PM CDT) HPV HR 16 Not Detected Not Detected [facility] Comment:Testing performed by : [facility], [address] [place]., [address] HPV HR 18 Not Detected Not Detected [facility] Comment:Testing performed by : [facility], [address] [place]., [address] HPV HR Non 16/18 Not Detected Not Detected [facility] Comment: Interpretive Data Nucleic acid amplification for detection of high-risk Human Papilloma virus (HPV) is performed by the [employer] 6800 HPV test. This assay specifically detects HPV-16 and HPV-18 genotypes. The following HPV genotypes are detected as high-risk HPV: HPV-31, 33, 35, ,39, 45, 51, 52, 56, 58, 59, 66, and 68. This assay has been approved by the [place] Food and Drug Administration for detection of HPV in cervical specimens collected by a physician using an endocervical brush/spatula or cervical broom and placed in the ThinPrep Pap Test PreservCyt collection containers. The performance characteristics of this test have been verified by the [facility] Molecular Infectious Disease laboratory. Correlate with separately reported cytology results, as applicable. Interpretive data last revised 23 Testing performed by: [facility], [address] [facility], [place]., [address] Endocervical 04/01/2023 1:50 PM CDT 04/02/2023 7:35 PM CDT Narrative [facility] - 04/03/2023 3:00 AM CDT Clinical history and diagnosis->Routine Number of vials->1 Testing type->Screening Last menstrual period (date if known)->PM us Gwendolyn Rose MD LAB BODY FLUIDS AND STOOLS ORDERABLES Final Result [facility] [address] [facility] Department [place] [address] * Hepatitis C antibody (01/04/2023 7:31 AM CDT) Hep C Ab NON-REACTI VE NON-REACT [facility] Comment: HCV antibody was non-reactive. There is no laboratory evidence of HCV infection. In most cases, no further action is required. However, if recent HCV exposure is suspected, a test for HCV RNA (test code 27801) is suggested. 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
--- OUTSIDE RECORDS SUMMARY | 2024-09-03 21:31 | XMS_ITS | Referral Summary ---
Author Organization [facility] Address [address] [place] [address] Care Team Providers Care Second Miller Name Role Phone Zita Fuchs NP Primary Care Provider [phone] Encounters Date Type Department Care Team Description 09/01/2024 9:30 AM CDT Lab [facility] [address] [place] [id number] Pre-operative exam 09/01/2024 9:02 AM CDT - 09/01/2024 11:59 PM CDT Hospital Encounter [facility] Cardiac Testing [address] [place] [address] Pre-operative exam Discharge Disposition: Discharge to home or self care 09/01/2024 8:25 AM CDT - 09/01/2024 11:59 PM CDT Hospital Encounter [facility] Diagnostic Imaging [address] [place] [address] Pre-operative exam Discharge Disposition: Discharge to home or self care 09/01/2024 2:30 PM CDT Office Visit [facility] [place] [address] [place] [phone] Zita Fuchs NP Primary osteoarthritis of right hip (Primary Dx); Type 2 diabetes mellitus with hyperglycemia, without long-term current use of insulin (HCC) 08/18/[address] [facility] [address] [place] [address] Jonathan Jacques MD disaiblity paperwork 08/17/2024 Telephone [facility] [address] [place] [address] [address] [place] [address] Jonathan Jacques MD 08/17/2024 Telephone [facility] [address] [place] [address] [address] [place] [address] Jonathan Jacques MD 08/17/2024 7:44 AM CDT - 08/17/2024 11:59 PM CDT Hospital Encounter [facility] [address] [place] [address] [address] [address] Discharge Disposition: Discharge to home or self care 08/17/2024 10:00 AM CDT Office Visit [facility] [address] [place] [address] [address] [address] Jonathan Jacques MD Pre-operative exam (Primary Dx); Pain in both knees, unspecified chronicity; Primary osteoarthritis of right hip; Primary osteoarthritis of left knee; Primary osteoarthritis of right knee 08/10/2024 Telephone [facility] [address] [place] [address] [address], [place] [address] Jonathan Jacques MD Appointment 08/09/2024 3:41 PM [employer] - 08/09/2024 11:59 PM [employer] Hospital Encounter [facility] [address] [place] [address] Pain of right hip Discharge Disposition: Discharge to home or self care 08/09/2024 3:15 PM [employer] Office Visit [facility] [address] [place] [phone] Constantin Cervantes DO Primary osteoarthritis of right hip (Primary Dx); Pain of right hip; Primary osteoarthritis of both knees from Last 3 Months Allergies Active Allergy Reactions Criticality Noted Date [...] complication, without long-term current use of insulin ([facility]) USE TO TEST BLOOD SUGAR ONCE DAILY 1 each 3 Active lancets (OneTouch Delica Plus Lancet) 33 gauge miscIndications: Type 2 diabetes mellitus without complication, without long-term current use of insulin ([facility]) 1 each by other route daily 100 [...] hyperglycemia, without long-term current use of insulin ([facility]) USE ONE STRIP DAILY TO TEST BLOOD SUGAR 100 each 3 4 Active dapagliflozin propanediol (Farxiga) 5 mg tabletIndication s:Type 2 diabetes mellitus with hyperglycemia, without long-term current use of insulin ([facility]) Take 1 tablet (5 mg total) by mouth daily 90 tablet 1 5 Active Farxiga 5 mg tabletIndication s:Type 2 diabetes mellitus without complication, without long-term current use of insulin ([facility]) TAKE 1 TABLET (5 MG TOTAL) BY MOUTH DAILY. 90 tablet 1 4 09/02/19 25 Discontinu ed(Reorder ) Active Problems Problem Noted [...] A1c in 3 months with a uacr Immunizations Immunization Administration Dates Next Due Influenza, Unspecified 03/16/2024,2022,03/28/2022(Deferr ed: Patient Refused) Tab Asia SARS-CoV-2 Monovalent Vaccination (12+ Yrs) PURPLE 09/17/2020,08/22/2020 Social History Tobacco Use Types Packs/Day Years [...] on file Legal Sex Female 7:05 PM [employer] Gender Identity Not on file Sexual Orientation Not on file Last Filed Vital Signs Vital Sign Reading [...] 09/13/2024 8:20 AM CDT Hospital Encounter [facility] [address] [place] [address] Jonathan Jacques MD [address] [address] 09/13/2024 8:20 AM CDT - 09/13/2024 10:45 AM CDT Surgery [facility] [address] [place] [address] Jonathan Jacques MD [address] [place] [address] [place] [address] Right Total Hip Arthroplasty- Anterior Approach, Depuy- Actis, Omnitrac, Aquamantys, 1 liter beta rinse, Pt to go home Scheduled Procedures Name Priority Associated Diagnoses Date/Ti me ARTHROPLASTY TOTAL HIP - ANTERIOR APPROACH Primary osteoarthritis of right hip 09/13/2024 8:20 AM CDT Procedures Procedure Name Priority Date/Time Associated Diagnosis [...] Read Routine (OP Routine) 08/09/2024 3:49 PM [employer] Pain of right hip LIPID PANEL Routine 04/17/2024 9:20 AM [employer] Mixed hyperlipidemia ALBUMIN CREATININE RATIO, URINE Routine 04/17/2024 9:20 AM [employer] Type 2 diabetes mellitus with hyperglycemia, without [...] 9:43 AM CDT 09/01/2024 10:08 AM CDT us Jonathan Jacques MD LAB BLOOD ORDERABLES Fin al Result [facility] [address] Department [place] [address] * (ABNORMAL) Differential, auto (09/01/2024 9:43 AM [...] 9:43 AM CDT 09/01/2024 10:08 AM CDT us Jonathan Jacques MD LAB BLOOD ORDERABLES Fin al Result [facility] [address] Department [place] [address] * CBC with auto differential (09/01/2024 9:43 AM CDT) [facility] WBC 6.9 3.8 - 9.9 K/cumm Hgb [...] MD LAB BLOOD ORDERABLES Fin al Result [facility] [address] [facility] Department [place] [address] * (ABNORMAL) Hemoglobin A1c (09/01/2024 9:43 AM CDT) [facility] Hgb A1C 6.1(H) 4.0 - 5.6 % Estimated Average Glucose 128 mg/dL [facility] Comment: The ADA recommends reporting an estimated Average Glucose (eAG) with all Hemoglobin A1c results using the equation derived from a study of 507 normal and diabetic adults. Minority populations were underrepresented and children were not included. (Diabetes Care 31:7688-2823, 2008). The eAG is not equivalent to a fasting glucose. Blood 09/01/2024 9:43 AM CDT 09/01/2024 10:08 AM CDT us Jonathan Jacques MD LAB BLOOD ORDERABLES Fin al Result Performing Organization Address City/[facility]/ZIP Co de Phone Number [facility] [address] Department [place] [address] * Comprehensive metabolic panel (09/01/2024 9:43 AM [...] ORDERABLES Fin al Result Performing Organization Address [facility]/ZIP Co de Phone Number [facility] [address] [facility] [place] [address] * Urinalysis reflex to microscopic and culture [...] tendency for uric acid stone formation. Source: [facility] Current Interpretive Data was last revised on [...] MICROBIOLOGY - GENER AL ORDERABLES Final Result [facility] [address] Department [place] [address] * ECG 12 lead (09/01/2024 9:19 AM CDT) Ventricular Rate EKG/Min 80 BPM [facility] Atrial Rate [address] [facility] NM-Interval (MSEC) [address] [facility] QRS-Interval (MSEC) [address] [facility] QT-Interval (MSEC) [address] [facility] QTc [address] [facility] P Ignacio [address] [facility] R Ignacio [address] [facility] T Ignacio [address] [facility] Diagnosis Normal sinus rhythm Normal ECG When compared with ECG of 13-OCT-2014 16:56, No significant change was found Confirmed by BRADEN VOIEDO M.D. ([id number]) on 09/03/2024 2:00:01 PM [facility] 09/01/2024 9:19 AM CDT 09/03/2024 2:00 PM CDT us Jonathan Jacques MD ECG ORDERABLES Final Re sult [facility] [employer] [facility] * XR Hip Right 2 or 3 Views W Pelvis (08/09/2024 3:49 PM INSPECT[employer]) Anatomical Region Laterality Modality Lower Extremities, Hip, Pelvis Right C omputed Radiography 08/12/2024 12:3 4 PM [employer] Narrative 08/12/2024 12:35 PM [employer] EXAM DESCRIPTION: XR HIP RIGHT 2 OR [...] by Stas Garcia M.D. T: Report ID: [id number] Reading Location: [id number] Procedure Note Stas Garcia MD - 08/12/2024 [...] by Stas Garcia M.D. T: Report ID: [id number] Reading Location: [place] [address] Constantin Cervantes DO IMG XR PROCEDURES Final Result * (ABNORMAL) Albumin Creatinine Ratio, Urine (04/17/2024 9:20 AM INSPECT[employer]) Creatinine, ur 17(L) 20 - 275 mg/dL [...] be within a diagnostic category. Urine 04/17/2024 9:20 AM [employer] 04/17/2024 9:21 AM [employer] Narrative [facility] - 04/18/2024 8:19 AM [employer] FASTING:YES FASTING: YES Zita Fuchs [employer] [facility] LAB URINE ORDERABLES Final Re sult Performing Organization Address City/State/[facility] Co de Phone Number [facility] [address] [address] * Lipid panel (04/17/2024 9:20 AM INSPECT[employer]) Cholesterol 163 <200 mg/dL [facility] [...] factors. LDL-C is now calculated using the Trinity calculation, which is a validated novel method providing better accuracy than the Friedewald equation in the estimation of LDL-C. Rich BEEBE et al. RY. 2013;310(19): 6564-2192 (http://education.Recochem/faq/KGP734) Chol/HDL ratio 2.8 <5.0 (calc) [facility] Non-HDL, (LDL+VLDL) 104 <130 mg/dL (calc) [facility] Comment: For patients with diabetes plus 1 major ASCVD risk factor, treating to a non-HDL-C goal of <100 mg/dL (LDL-C of <70 mg/dL) is considered a therapeutic option. Blood 04/17/2024 9:20 AM [employer] 04/17/2024 9:21 AM [employer] Narrative [facility] - 04/18/2024 8:19 AM [employer] FASTING:YES FASTING: YES Zita Fuchs [employer] [facility] LAB BLOOD ORDERABLES Final An fitzpatrick Performing Organization Address [facility] Co de Phone Number [facility] [address] [address] * Dexa Axial Skeleton Bone Density 1 or 2 Site (12/19/2023 8:15 AM CDT) Anatomical Region Laterality Modality Body N/A Mammography 12/19/2023 9:10 PM CDT Narrative 12/19/2023 9:11 PM CDT EXAM DESCRIPTION: DEXA AXIAL SKELETON BONE DENSITY 1 OR MORE SITES REASON FOR STUDY: 68 y/o year old F with given history of: 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 MF: YESI Report ID: [id number] Reading Location: [id number] us Zita Shila [employer] IMG DXA PROCEDURES Final Resu lt * [...] compared to prior imaging studies performed at [facility] on 12/30/2005 and 01/21/2022, and at [facility] on 03/06/2016. The breasts are heterogeneously dense, [...] compared to prior imaging studies performed at [facility] on 12/30/2005 and 01/21/2022, and at [facility] on 03/06/2016. The breasts are heterogeneously dense, [...] HR 16 Not Detected Not Detected [facility] GARCIA Comment:Testing performed by : [facility], [address] [place]., [address] HPV HR 18 Not Detected Not Detected ARI Comment:Testing performed by : [facility], [address] [place]., [address] HPV HR Non 16/18 Not Detected Not [...] this test have been verified by the [facility] Molecular Infectious Disease laboratory. Correlate with separately reported cytology results, as applicable. Interpretive data last revised 22 Testing performed by: [facility], [address] [place]., [address] Endocervical 04/01/2023 1:50 PM CDT 04/02/2023 7:35 PM CDT Narrative [facility] - 04/03/2023 3:00 AM CDT Clinical history and diagnosis->Routine Number of vials->1 Testing type->Screening Last menstrual period (date if known)->PM Gwendolyn Rose MD LAB BODY FLUIDS AND STOOLS ORDERABLES Final Result [facility] [address] [facility] [facility] Department [place] [address] * Hepatitis C antibody (01/04/2023 7:31 AM CDT) Hep C Ab NON-REACTI VE NON-REACT [email or web address] Comment: HCV antibody was non-reactive. There is no laboratory evidence of HCV infection. In most cases, no further action is required. However, if recent HCV exposure is suspected, a test for HCV RNA (test code 32760) is suggested. For additional information please refer to http://education.Markafoni/faq/QDH35f3 (This link is being provided for informational/ educational purposes only.) 01/04/2023 7:31 AM CDT 01/04/2023 7:33 AM CDT [facility] - 01/09/2023 12:35 PM CDT FASTING:YES FASTING: YES Prem Caballero DO LAB MICROBIOLOGY - GENER AL ORDERABLES Final Result [email or web address] [address] [place] [address] from Last 3 Months or Most Recently Relevant to Health Maintenance Insurance [facility] CIGNA MEDICARE CIGNA Care Teams Second Miller Relationship Specialty Start Date End Date Zita Fuchs NP [address] [place] [address] PCP - General Family Medicine 09/11/23
[2024-09-03 21:50] VITALS: BP 107/52; PULSE 69; RESP 18; TEMP 36.3; O2SAT 100
[2024-09-04] VITALS (18 sets, daily range): BP systolic 99–124; BP diastolic 50–70; PULSE 71–88; RESP 11–25; O2SAT 93–100
--- OUTSIDE RECORDS SUMMARY | 2024-09-04 00:06 | XMS_ITS | Clinical Summary ---
Author Organization [facility] Office Center Address [address] [place] [address] Care Team Providers Care Fitness Assistant Name Role Phone LouisZita loco JOYCE Primary Care Provider Allergies Active Allergy Reactions Criticality Noted Date [...] Description 09/01/2024 2:30 PM CDT Office Visit [facility] [place] [address] [facility] [address] [place] [address] Zita Fuchs NP Primary osteoarthritis of right hip (Primary Dx); Type 2 diabetes mellitus with hyperglycemia, without long-term current use of insulin (HCC) 09/01/2024 9:30 AM CDT Lab [facility] [address] [place] [address] Pre-operative exam 09/01/2024 9:02 AM CDT - 09/01/2024 11:59 PM CDT Hospital Encounter [facility] Cardiac Testing [address] [place] [address] Pre-operative exam Discharge Disposition: Discharge to home or self care 09/01/2024 8:25 AM CDT - 09/01/2024 11:59 PM CDT Hospital Encounter [facility] Diagnostic Imaging [address] [place] [address] Pre-operative exam Discharge Disposition: Discharge to home or self care 08/18/2024 Telephone [facility] Orthopedics and Sports Medicine [address] [facility] [address] [address] [place] [address] Jonathan Jacques MD disaiblity paperwork 08/17/2024 10:00 AM CDT Office Visit [facility] Sports Medicine [address] [place] [address] [address] [place] [address] Joanthan Jacques MD Pre-operative exam (Primary Dx); Pain in both knees, unspecified chronicity; Primary osteoarthritis of right hip; Primary osteoarthritis of left knee; Primary osteoarthritis of right knee 08/17/2024 7:44 AM CDT - 08/17/2024 11:59 PM CDT Hospital Encounter [facility] Medicine [address] [place] [address] [address] [place] [address] Discharge Disposition: Discharge to home or self care 08/17/2024 Telephone [facility] Orthopedics and Sports Medicine [address] [place] [address] [address] [place] [address] Jonathan Jacques MD 08/17/2024 Telephone [facility] Orthopedics and Sports Medicine [address] [place] [address] [address], [place] [address] Jonathan Jacques MD 08/10/2024 Telephone [facility] Orthopedics and Sports Medicine [address] [place] [address] [address] [place] [address] Jonathan Jacques MD Appointment 08/09/2024 3:41 PM FACE BOSS - 08/09/2024 11:59 PM FACE BOSS Hospital Encounter [facility] Diag Imaging [address] [place] [address] Pain of right hip Discharge Disposition: Discharge to home or self care 08/09/2024 3:15 PM FACE BOSS Office Visit [facility] Medicine [address] [place] [phone] Constantin Cervantes, Primary osteoarthritis of right hip [...] on file Legal Sex Female 7:05 PM FACE BOSS Gender Identity Not on file Sexual Orientation [...] Description 09/13/2024 8:20 AM CDT Hospital Encounter [facility] Operating Room [address] [place] [address] Jonathan Jacques MD [address] [place] [address] [address] [place] [address] 09/13/2024 8:20 AM CDT - 09/13/2024 10:45 AM CDT Surgery [facility] Operating Room [address] [place] [address] Jonathan Jacques MD [address] [place] [address] [address] [place] [address] Right Total Hip Arthroplasty- Anterior Approach, Depuy- [...] Read Routine (OP Routine) 08/09/2024 3:49 PM FACE BOSS Pain of right hip LIPID PANEL Routine 04/17/2024 9:20 AM FACE BOSS Mixed hyperlipidemia ALBUMIN CREATININE RATIO, URINE Routine 04/17/2024 9:20 AM FACE BOSS Type 2 diabetes mellitus with hyperglycemia, without [...] LAB BLOOD ORDERABLES Fin al Result [facility] [address] [facility] [address] Department [place] [address] * (ABNORMAL) Differential, auto (09/01/2024 9:43 AM CDT) Neutrophil abs 5.5 1.5 - 6.5 K/cumm Imm gran abs 0.0 0.0 - 0.1 K/cumm [facility] Lymphocyte abs 0.7(L) 0.8 - 3.3 K/cumm [facility] Monocyte abs 0.5 0.2 - 0.8 K/cumm [facility] Eosinophil abs 0.1 0.0 - 0.5 K/cumm [facility] Basophil abs 0.0 0.0 - 0.1 K/cumm [facility] Neutrophil pct 80.7 % [facility] Comment: Interpretive Data Percent cell count reference ranges are not reported, since discordance with absolute values may lead to misinterpretation of CBC data. Current Interpretive Data was last revised on 2017. Imm gran pct 0.3 % [facility] Comment: Interpretive Data Percent cell count reference ranges are not reported, since discordance with absolute values may lead to misinterpretation of CBC data. Current Interpretive Data was last revised on 2017. Lymphocyte pct 10.3 % [facility] Comment: Interpretive Data Percent cell count reference ranges are not reported, since discordance with absolute values may lead to misinterpretation of CBC data. Current Interpretive Data was last revised on 2017. Monocyte pct 6.7 % [facility] Comment: Interpretive Data Percent cell count reference ranges are not reported, since discordance with absolute values may lead to misinterpretation of CBC data. Current Interpretive Data was last revised on 2017. Eosinophil pct 1.6 % [facility] Comment: Interpretive Data Percent cell count reference ranges are not reported, since discordance with absolute values may lead to misinterpretation of CBC data. Current Interpretive Data was last revised on 2017. Basophil pct 0.4 % [facility] Comment: Interpretive Data Percent cell count reference ranges are not reported, since discordance with absolute values may lead to misinterpretation of CBC data. Current Interpretive Data was last revised on 2017. Blood 09/01/2024 9:43 AM CDT 09/01/2024 10:08 AM CDT Jonathan Jacques MD LAB BLOOD ORDERABLES Fin al Result Performing Organization Address [facility] Co de Phone Number ARI [address] [employer] [place] [address] * CBC with auto differential (09/01/2024 9:43 AM CDT) WBC 6.9 3.8 - 9.9 K/cumm Hgb 14.2 11.9 - 15.5 g/dL [facility] Hct 41.5 35.6 - 45.5 % [facility] Plt 281 150 - 400 K/cumm [facility] MPV 9.2 9.1 - 12.3 fL [facility] RBC 4.41 3.90 - 5.20 M/cumm [facility] MCV 94.1 81.3 - 96.4 fL [facility] MCH 32.2 27.1 - 33.3 pg [facility] MCHC 34.2 32.3 - 35.7 g/dL [facility] RDW CV 11.9 11.1 - 14.9 % [facility] RDW SD 41.6 35.7 - 48.1 fL [facility] NRBC abs 0.00 0.00 - 0.01 K/cumm [facility] Blood 09/01/2024 9:43 AM CDT 09/01/2024 10:08 AM CDT Jonathan Jacques MD LAB BLOOD ORDERABLES Fin al Result Performing Organization Address [facility]/ZIP Co de Phone Number ARI [address] [employer] [place] [address] * (ABNORMAL) Hemoglobin A1c (09/01/2024 9:43 AM CDT) Hgb A1C 6.1(H) 4.0 - 5.6 % Estimated Average Glucose 128 mg/dL [facility] Comment: The ADA recommends reporting an estimated Average Glucose (eAG) with all Hemoglobin A1c results using the equation derived from a study of 507 normal and diabetic adults. Minority populations were underrepresented and children were not included. (Diabetes Care 31:6524-4865, 2008). The eAG is not equivalent to a fasting glucose. Blood 09/01/2024 9:43 AM CDT 09/01/2024 10:08 AM CDT Jonathan Jacques MD LAB BLOOD ORDERABLES Fin al Result [facility] [address] [facility] [address] [facility] Department [place] [address] * Comprehensive metabolic panel (09/01/2024 9:43 AM CDT) Sodium 140 135 - 145 mmol/L Potassium, pl 4.1 3.3 - 4.9 mmol/L [facility] Chloride 103 97 - 110 mmol/L [facility] CO2 25 22 - 32 mmol/L [facility] Anion gap 12 2 - 15 mmol/L [facility] BUN 19 6 - 25 mg/dL [facility] Creatinine 0.63 0.60 - 1.10 mg/dL [facility] Glucose 110 70 - 199 mg/dL [facility] Comment: Interpretive Data Fasting glucose >/= [...] 2022. Calcium 9.7 8.5 - 10.3 mg/dL [facility] Bilirubin, total 0.3 0.1 - 1.2 mg/dL [facility] Protein, pl 7.7 6.5 - 8.5 g/dL [facility] Albumin 4.4 3.5 - 5.0 g/dL [facility] Alk phos 91 40 - 130 Units/L [facility] ALT 18 7 - 45 Units/L [facility] AST 18 10 - 45 Units/L [facility] Blood 09/01/2024 9:43 AM CDT 09/01/2024 10:08 AM CDT Jonathan Jacques MD LAB BLOOD ORDERABLES Fin al Result Performing Organization Address [facility] de Phone Number ARI [address] [place] [address] * Urinalysis reflex to microscopic and culture Urine (09/01/2024 9:33 AM CDT) Color, ur Yellow Yellow Clarity, ur Clear Clear [facility] Specific gravity, ur 1.016 1.003 - 1.030 [facility] pH, urine 6.5 [facility] Comment: Interpretive Data U rine pH is affected by diet, medications, systemic acid-base disturbances, and renal tubular function. pH may affect urinary stone formation. For example, urine pH below 6.0 may help reduce the tendency for calcium phosphate stones and pH greater than 6.0 may reduce the tendency for uric acid stone formation. Source: [facility] Current Interpretive Data was last revised on 2017 Protein, ur ql Negative Negative [facility] Glucose, ur ql Negative Negative [facility] Ketones, ur Trace Negative [facility] Bilirubin, ur Negative Negative [facility] Blood, ur Negative Negative [facility] Urobilinogen, ur <2.0 <2.0 mg/dL [facility] Nitrite, ur Negative Negative [facility] Leukocyte esterase, ur Negative Negative [facility] UA reflex comment Reflex conditions for microscopic UA and culture not met. [facility] Urine 09/01/2024 9:33 AM CDT 09/01/2024 10:13 AM CDT Jonathan Jacques MD LAB MICROBIOLOGY - GENER AL ORDERABLES Final Result Performing Organization Address [facility] Co de Phone Number ARI [address] [place] [address] [place] [address] * ECG 12 lead (09/01/2024 9:19 AM CDT) Ventricular Rate EKG/Min 80 BPM [facility] Atrial Rate 80 BPM [facility] [place]-Interval (MSEC) 152 ms [facility] QRS-Interval (MSEC) 80 ms [facility] QT-Interval (MSEC) 378 ms [facility] QTc 435 ms [facility] P [place] 63 degrees [facility] R [place] 27 degrees [facility] T [place] 55 degrees [facility] Diagnosis Normal sinus rhythm Normal ECG When compared with ECG of 13-OCT-2014 16:56, No significant change was found Confirmed by BRADEN OVIEDO M.D. ([id number]) on 09/03/2024 2:00:01 PM [facility] 09/01/2024 9:19 AM CDT 09/03/2024 2:00 PM CDT us Jonathan Jacques MD ECG ORDERABLES Final Re sult [facility] * XR Hip Right 2 or 3 Views W Pelvis (08/09/2024 3:49 PM FACE BOSS) Anatomical Region Laterality Modality Lower Extremities, Hip, Pelvis Right C omputed Radiography 08/12/2024 12:3 4 PM FACE BOSS Narrative 08/12/2024 12:35 PM FACE BOSS EXAM DESCRIPTION: XR HIP RIGHT 2 OR [...] Stas Garcia M.D. TH T: Report ID: [id number] Reading Location: [id number] Procedure Note Stas Garcia MD - 08/12/2024 [...] by Stas Garcia M.D. T: Report ID: [id number] Reading Location: [place] [address] Constantin Cervantes DO IMG XR PROCEDURES Final Result * (ABNORMAL) Albumin Creatinine Ratio, Urine (04/17/2024 9:20 AM FACE BOSS) Creatinine, ur 17(L) 20 - 275 mg/dL [...] diagnostic category. Urine 04/17/2024 9:2 0 AM FACE BOSS 04/17/2024 9:21 AM FACE BOSS Narrative [facility] - 04/18/2024 8:19 AM FACE BOSS FASTING:YES FASTING: YES us Zita Fuchs OUTSOLE CEMENTER MACHINE LAB URINE ORDERABLES Final Re sult YUAN [facility] [address] [place] [address] * Lipid panel (04/17/2024 9:20 AM FACE BOSS) Cholesterol 163 <200 mg/dL [facility] [...] LDL-C. Rich SS et al. RY. 2013;310(19): 1316-5939 (http://education.[employer]/faq/KCV737) Chol/HDL ratio 2.8 <5.0 (calc) [facility] Non-HDL, (LDL+VLDL) 104 <130 mg/dL (calc) [facility] Comment: For patients with diabetes plus 1 major ASCVD risk factor, treating to a non-HDL-C goal of <100 mg/dL (LDL-C of <70 mg/dL) is considered a therapeutic option. 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 MF: YESI Report ID: [id number] Reading Location: [place] [address] Zita Fuchs OUTSOLE CEMENTER MACHINE IMG DXA PROCEDURES Final Resu lt * [...] compared to prior imaging studies performed at [facility] on 12/30/2005 and 01/21/2022, and at [facility] on 03/06/2016. The breasts are heterogeneously dense, [...] compared to prior imaging studies performed at [facility] on 12/30/2005 and 01/21/2022, and at [facility] on 03/06/2016. The breasts are heterogeneously dense, [...] Not Detected ARI Comment:Testing performed by : [facility], [address] [place]., [address] HPV HR 18 Not Detected Not Detected ARI Comment:Testing performed by : [facility], [address] [place]., [address] HPV HR Non 16/18 Not Detected Not [...] this test have been verified by the [facility] Molecular Infectious Disease laboratory. Correlate with separately reported cytology results, as applicable. Interpretive data last revised 23 Testing performed by: [facility], [address] [facility], [place]., [address] Endocervical 04/01/2023 1:50 PM CDT 04/02/2023 7:35 PM CDT Narrative [facility] - 04/03/2023 3:00 AM CDT Clinical history and diagnosis->Routine Number of vials->1 Testing type->Screening Last menstrual period (date if known)->PM us Gwendolyn Rose MD LAB BODY FLUIDS AND STOOLS ORDERABLES Final Result [facility] [address] [facility] Department of [place] [address] * Hepatitis C antibody (01/04/2023 7:31 AM CDT) Hep C Ab NON-REACTI VE NON-REACT [facility] Comment: HCV antibody was non-reactive. There is no laboratory evidence of HCV infection. In most cases, no further action is required. However, if recent HCV exposure is suspected, a test for HCV RNA (test code 44428) is suggested. For additional information please refer to http://education.[employer]/faq/PMQ41g5 (This link is being provided for informational/ educational purposes only.) 01/04/2023 7:31 AM CDT 01/04/2023 7:33 AM CDT Narrative [facility] - 01/09/2023 12:35 PM CDT FASTING:YES FASTING: YES us Prem Caballero DO LAB MICROBIOLOGY - GENER AL ORDERABLES Final Result [facility] [address] [address] from Last 3 Months or Most Recently Relevant to Health Maintenance Insurance [employer] CIGNA MEDICARE CIGNA Care Teams Fitness Assistant Relationship Specialty Start Date End Date Zita Fuchs NP [address] [facility] [address] [address] PCP - General Family Medicine 09/11/23
--- OUTSIDE RECORDS SUMMARY | 2024-09-04 00:06 | XMS_ITS | Referral Summary ---
Author Organization [facility] Address [address] [place] [address] Care Team Providers Care Tapering Machine Operator Name Role Phone Zita Fuchs NP Primary Care Provider Encounters Date Type Department Care Team Description 09/01/2024 9:30 AM CDT Lab [facility] Lab [address] [place] [address] Pre-operative exam 09/01/2024 9:02 AM CDT - 09/01/2024 11:59 PM CDT Hospital Encounter [facility] Cardiac Testing [address] [place] [address]878 Pre-operative exam Discharge Disposition: Discharge to home or self care 09/01/2024 8:25 AM CDT - 09/01/2024 11:59 PM CDT Hospital Encounter [facility] Diagnostic Imaging [address] [place] [address]65 Pre-operative exam Discharge Disposition: Discharge to home or self care 09/01/2024 2:30 PM CDT Office Visit [facility] [place] [address] [place] [phone] Zita Fuchs NP Primary osteoarthritis of right hip (Primary Dx); Type 2 diabetes mellitus with hyperglycemia, without long-term current use of insulin (HCC) 08/18/2024 Telephone [facility] [address] [place] [address] Jonathan Jacques MD disaiblity paperwork 08/17/2024 Telephone [facility] [address] [place] [address] [address] [place] [address] Jonathan Jacques MD 08/17/2024 Telephone [facility] [address] [place] [address] [address] [place] [address] Jonathan Jacques MD 08/17/2024 7:44 AM CDT - 08/17/2024 11:59 PM CDT Hospital Encounter [facility] [address] [place] [address] [address] [address] Discharge Disposition: Discharge to home or self care 08/17/2024 10:00 AM CDT Office Visit [facility] [address] [place] [address] [address] [address] Jonathan Jacques MD Pre-operative exam (Primary Dx); Pain in both knees, unspecified chronicity; Primary osteoarthritis of right hip; Primary osteoarthritis of left knee; Primary osteoarthritis of right knee 08/10/2024 Telephone [facility] [address] [place] [address] [address] [address] Jonathan Jacques MD Appointment 08/09/2024 3:41 PM CRAB FISHERMAN - 08/09/2024 11:59 PM CRAB FISHERMAN Hospital Encounter [facility] Di[facility] Imaging [address] [place] [address] Pain of right hip Discharge Disposition: Discharge to home or self care 08/09/2024 3:15 PM CRAB FISHERMAN Office Visit [facility] [address] [place] [phone] Constantin Cervantes DO Primary osteoarthritis of right [...] complication, without long-term current use of insulin ([facility]) USE TO TEST BLOOD SUGAR ONCE DAILY 1 each 3 Active lancets (OneTouch Delica Plus Lancet) 33 gauge miscIndications: Type 2 diabetes mellitus without complication, without long-term current use of insulin ([facility]) 1 each by other route [...] hyperglycemia, without long-term current use of insulin ([facility]) USE ONE STRIP DAILY TO TEST BLOOD SUGAR 100 each 3 4 Active dapagliflozin propanediol (Farxiga) 5 mg tabletIndication s:Type 2 diabetes mellitus with hyperglycemia, without long-term current use of insulin ([facility]) Take 1 tablet (5 mg total) by mouth daily 90 tablet 1 5 Active Farxiga 5 mg tabletIndication s:Type 2 diabetes mellitus without complication, without long-term current use of insulin ([facility]) TAKE 1 TABLET (5 MG [...] Due Influenza, Unspecified 03/16/2024,2022,03/28/2022(Deferr ed: Patient Refused) Crzyfish SARS-CoV-2 Monovalent Vaccination (12+ Yrs) PURPLE 09/17/2020,08/22/2020 [...] on file Legal Sex Female 7:05 PM CRAB FISHERMAN Gender Identity Not on file Sexual Orientation [...] 09/13/2024 8:20 AM CDT Hospital Encounter [facility] Operating Room [address] [place] [address] Jonathan Jacques MD [address] [place] [address] 09/13/2024 8:20 AM CDT - 09/13/2024 10:45 AM CDT Surgery [facility] Operating Room [address] [place] [address] Jonathan Jacques MD [address] [place] [address] [place] [address] Right Total Hip Arthroplasty- Anterior Approach, Depuy- [...] Read Routine (OP Routine) 08/09/2024 3:49 PM CRAB FISHERMAN Pain of right hip LIPID PANEL Routine 04/17/2024 9:20 AM CRAB FISHERMAN Mixed hyperlipidemia ALBUMIN CREATININE RATIO, URINE Routine 04/17/2024 9:20 AM CRAB FISHERMAN Type 2 diabetes mellitus with hyperglycemia, without [...] LAB BLOOD ORDERABLES Fin al Result ARI [address] Department [place] [address] * (ABNORMAL) Differential, auto (09/01/2024 9:43 AM CDT) Neutrophil abs 5.5 1.5 - 6.5 K/cumm Imm gran abs 0.0 0.0 - 0.1 K/cumm [facility] Lymphocyte abs 0.7(L) 0.8 - 3.3 K/cumm [facility] Monocyte abs 0.5 0.2 - 0.8 K/cumm [facility] Eosinophil abs 0.1 0.0 - 0.5 K/cumm [facility] Basophil abs 0.0 0.0 - 0.1 K/cumm [facility] Neutrophil pct 80.7 % [facility] Comment: Interpretive Data Percent cell count reference ranges are not reported, since discordance with absolute values may lead to misinterpretation of CBC data. Current Interpretive Data was last revised on 2017. Imm gran pct 0.3 % [facility] Comment: Interpretive Data Percent cell count reference ranges are not reported, since discordance with absolute values may lead to misinterpretation of CBC data. Current Interpretive Data was last revised on 2017. Lymphocyte pct 10.3 % [facility] Comment: Interpretive Data Percent cell count reference ranges are not reported, since discordance with absolute values may lead to misinterpretation of CBC data. Current Interpretive Data was last revised on 2017. Monocyte pct 6.7 % [facility] Comment: Interpretive Data Percent cell count reference ranges are not reported, since discordance with absolute values may lead to misinterpretation of CBC data. Current Interpretive Data was last revised on 2017. Eosinophil pct 1.6 % [facility] Comment: Interpretive Data Percent cell count reference ranges are not reported, since discordance with absolute values may lead to misinterpretation of CBC data. Current Interpretive Data was last revised on 2017. Basophil pct 0.4 % [facility] Comment: Interpretive Data Percent cell count reference ranges are not reported, since discordance with absolute values may lead to misinterpretation of CBC data. Current Interpretive Data was last revised on 2017. Blood 09/01/2024 9:43 AM CDT 09/01/2024 10:08 AM CDT us Jonathan Jacques MD LAB BLOOD ORDERABLES Fin al Result ARI [address] Department [place] [address] * CBC with auto differential (09/01/2024 9:43 AM CDT) [facility] WBC 6.9 3.8 - 9.9 K/cumm Hgb 14.2 11.9 - 15.5 g/dL [facility] Hct 41.5 35.6 - 45.5 % [facility] Plt 281 150 - 400 K/cumm [facility] MPV 9.2 9.1 - 12.3 fL [facility] RBC 4.41 3.90 - 5.20 M/cumm [facility] MCV 94.1 81.3 - 96.4 fL [facility] MCH 32.2 27.1 - 33.3 pg [facility] MCHC 34.2 32.3 - 35.7 g/dL [facility] RDW CV 11.9 11.1 - 14.9 % [facility] RDW SD 41.6 35.7 - 48.1 fL [facility] NRBC abs 0.00 0.00 - 0.01 K/cumm [facility] Blood 09/01/2024 9:43 AM CDT 09/01/2024 10:08 AM CDT Jonathan Jacques MD LAB BLOOD ORDERABLES Fin al [facility] [address] Department [place] [address] * (ABNORMAL) Hemoglobin A1c (09/01/2024 9:43 AM CDT) [facility] Hgb A1C 6.1(H) 4.0 - 5.6 % Estimated Average Glucose 128 mg/dL [facility] Comment: The ADA recommends reporting an estimated Average Glucose (eAG) with all Hemoglobin A1c results using the equation derived from a study of 507 normal and diabetic adults. Minority populations were underrepresented and children were not included. (Diabetes Care 31:8178-2278, 2008). The eAG is not equivalent to a fasting glucose. Blood 09/01/2024 9:43 AM CDT 09/01/2024 10:08 AM CDT us Jonathan Jacques MD LAB BLOOD ORDERABLES Fin al Result Performing Organization Address City/[facility]/ZIP Co de Phone Number ARI [address] Department [place] [address] * Comprehensive metabolic panel (09/01/2024 9:43 AM CDT) Sodium 140 135 - 145 mmol/L Potassium, pl 4.1 3.3 - 4.9 mmol/L [facility] Chloride 103 97 - 110 mmol/L [facility] CO2 25 22 - 32 mmol/L [facility] Anion gap 12 2 - 15 mmol/L [facility] BUN 19 6 - 25 mg/dL [facility] Creatinine 0.63 0.60 - 1.10 mg/dL [facility] Glucose 110 70 - 199 mg/dL [facility] Comment: Interpretive Data Fasting glucose >/= 126 [...] 2022. Calcium 9.7 8.5 - 10.3 mg/dL [facility] Bilirubin, total 0.3 0.1 - 1.2 mg/dL [facility] Protein, pl 7.7 6.5 - 8.5 g/dL [facility] Albumin 4.4 3.5 - 5.0 g/dL [facility] Alk phos 91 40 - 130 Units/L [facility] ALT 18 7 - 45 Units/L [facility] AST 18 10 - 45 Units/L [facility] Blood 09/01/2024 9:43 AM CDT 09/01/2024 10:08 AM CDT Jonathan Jacques MD LAB BLOOD ORDERABLES Fin al Result Performing Organization Address [facility]/ZIP Co de Phone Number ARI MH [address] [facility] [place] [address] * Urinalysis reflex to microscopic and culture Urine (09/01/2024 9:33 AM CDT) Color, ur Yellow Yellow Clarity, ur Clear Clear [facility] Specific gravity, ur 1.016 1.003 - 1.030 [facility] pH, urine 6.5 [facility] Comment: Interpretive Data U rine pH is affected by diet, medications, systemic acid-base disturbances, and renal tubular function. pH may affect urinary stone formation. For example, urine pH below 6.0 may help reduce the tendency for calcium phosphate stones and pH greater than 6.0 may reduce the tendency for uric acid stone formation. Source: [facility] Current Interpretive Data was last revised on 2017 Protein, ur ql Negative Negative [facility] Glucose, ur ql Negative Negative [facility] Ketones, ur Trace Negative [facility] Bilirubin, ur Negative Negative [facility] Blood, ur Negative Negative [facility] Urobilinogen, ur <2.0 <2.0 mg/dL [facility] Nitrite, ur Negative Negative [facility] Leukocyte esterase, ur Negative Negative [facility] UA reflex comment Reflex conditions for microscopic UA and culture not met. [facility] Urine 09/01/2024 9:33 AM CDT 09/01/2024 10:13 AM CDT Jonathan Jacques MD LAB MICROBIOLOGY - GENER AL ORDERABLES Final Result ARI [address] Department [place] [address] * ECG 12 lead (09/01/2024 9:19 AM CDT) Ventricular Rate EKG/Min 80 BPM [facility] Atrial Rate 80 BPM [facility] OH-Interval (MSEC) 152 ms [facility] QRS-Interval (MSEC) 80 ms [facility] QT-Interval (MSEC) 378 ms [facility] QTc 435 ms [facility] P [place] 63 degrees [facility] R [place] 27 degrees [facility] T [place] 55 degrees [facility] Diagnosis Normal sinus rhythm Normal ECG When compared with ECG of 13-OCT-2014 16:56, No significant change was found Confirmed by BRADEN OVIEDO M.D. ([id number]) on 09/03/2024 2:00:01 PM [facility] 09/01/2024 9:19 AM CDT 09/03/2024 2:00 PM CDT us Jonathan Jacques MD ECG ORDERABLES Final Re sult [facility] [employer] [facility] * XR Hip Right 2 or 3 Views W Pelvis (08/09/2024 3:49 PM CRAB FISHERMAN) Anatomical Region Laterality Modality Lower Extremities, Hip, Pelvis Right C omputed Radiography 08/12/2024 12:3 4 PM CRAB FISHERMAN Narrative 08/12/2024 12:35 PM CRAB FISHERMAN EXAM DESCRIPTION: XR HIP RIGHT 2 OR [...] 08/12/2024 12:35 PM - Electronically signed by Stsa Garcia M.D. T: Report ID: [id number] Reading Location: [id number] Procedure Note Stas Garcia MD - 08/12/2024 [...] by Stas Garcia M.D. T: Report ID: [id number] Reading Location: [place] [address] Constantin Cervantes DO IMG XR PROCEDURES Final Result * (ABNORMAL) Albumin Creatinine Ratio, Urine (04/17/2024 9:20 AM CRAB FISHERMAN) Creatinine, ur 17(L) 20 - 275 mg/dL [...] a diagnostic category. Urine 04/17/2024 9:20 AM CRAB FISHERMAN 04/17/2024 9:21 AM CRAB FISHERMAN Narrative [facility] - 04/18/2024 8:19 AM CRAB FISHERMAN FASTING:YES FASTING: YES Zita Fuchs POLE SHAVER LAB URINE ORDERABLES Final Re sult Performing Organization Address City/State/[facility] Co de Phone Number Y[facility] [address] [address] * Lipid panel (04/17/2024 9:20 AM CRAB FISHERMAN) Cholesterol 163 <200 mg/dL [facility] [...] LDL-C. Rich BEEBE et al. RY. 2013;310(19): 1235-2496 (http://education.[employer] [facility]/faq/YXC834) Chol/HDL ratio 2.8 <5.0 (calc) [facility] Non-HDL, (LDL+VLDL) 104 <130 mg/dL (calc) [facility] Comment: For patients with diabetes plus 1 major ASCVD risk factor, treating to a non-HDL-C goal of <100 mg/dL (LDL-C of <70 mg/dL) is considered a therapeutic option. Blood 04/17/2024 9:20 AM CRAB FISHERMAN 04/17/2024 9:21 AM CRAB FISHERMAN Narrative [facility] - 04/18/2024 8:19 AM CRAB FISHERMAN FASTING:YES FASTING: YES Zita Fuchs POLE SHAVER LAB BLOOD ORDERABLES Final An fitzpatrick Performing Organization Address [facility] Co de Phone Number [facility] [address] [address] * Dexa Axial Skeleton Bone Density 1 or 2 Site (12/19/2023 8:15 AM CDT) Anatomical Region Laterality Modality Body N/A Mammography 12/19/2023 9:10 PM CDT Narrative 12/19/2023 9:11 PM CDT EXAM DESCRIPTION: DEXA AXIAL SKELETON BONE DENSITY 1 OR MORE SITES REASON FOR STUDY: 68 y/o year old F with given history of: 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 MF: YESI Report ID: [id number] Reading Location: [id number] us Zita Shila POLE SHAVER IMG DXA PROCEDURES Final Resu lt * [...] compared to prior imaging studies performed at [facility] on 12/30/2005 and 01/21/2022, and at [facility] on 03/06/2016. The breasts are heterogeneously dense, [...] compared to prior imaging studies performed at [facility] on 12/30/2005 and 01/21/2022, and at [facility] on 03/06/2016. The breasts are heterogeneously dense, [...] Detected ARI GARCIA Comment:Testing performed by : [facility], [address] [place]., [address] HPV HR 18 Not Detected Not Detected ARI Comment:Testing performed by : [facility], [address] [place]., [address] HPV HR Non 16/18 Not Detected Not [...] this test have been verified by the [facility] Molecular Infectious Disease laboratory. Correlate with separately reported cytology results, as applicable. Interpretive data last revised 22 Testing performed by: [facility], [address] [place]., [address] Endocervical 04/01/2023 1:50 PM CDT 04/02/2023 7:35 PM CDT Narrative ARI - 04/03/2023 3:00 AM CDT Clinical history and diagnosis->Routine Number of vials->1 Testing type->Screening Last menstrual period (date if known)->PM Gwendolyn Rose MD LAB BODY FLUIDS AND STOOLS ORDERABLES Final Result [facility] [address] [facility] [address] [facility] Department [place] [address] * Hepatitis C antibody (01/04/2023 7:31 AM CDT) Hep C Ab NON-REACTI VE NON-REACT [facility] Comment: HCV antibody was non-reactive. There is no laboratory evidence of HCV infection. In most cases, no further action is required. However, if recent HCV exposure is suspected, a test for HCV RNA (test code 43981) is suggested. For additional information please refer to http://education.ModusP/faq/OHS68r5 (This link is being provided for informational/ educational purposes only.) 01/04/2023 7:31 AM CDT 01/04/2023 7:33 AM CDT [facility] - 01/09/2023 12:35 PM CDT FASTING:YES FASTING: YES Prem Caballero DO LAB MICROBIOLOGY - GENER AL ORDERABLES Final Result [facility] [address] [place] [address] from Last 3 Months or Most Recently Relevant to Health Maintenance Insurance [facility] CIGNA MEDICARE CIGNA Care Teams Tapering Machine Operator Relationship Specialty Start Date End Date Zita Fuchs NP [address] [address] PCP - General Family Medicine 09/11/23
--- OUTSIDE RECORDS SUMMARY | 2024-09-04 00:06 | XMS_ITS | Encounter Summary ---
Author Organization [facility] Healthcare Address [address] [place] [address] Care Team Providers Care Clerical Assistant Name Role Phone Unavailable Primary Care Provider Unavailabl e Reason for Visit * Diagnostic Imaging (Routine) - Closed Specialty Diagnoses / Procedures Referred By Contac t Referred To Contact Procedures Breast Imaging Screening Outside Reference Referral, Self Referral ID Status Reason Start Date Expiration Date Visits Re quested Visits Authorized [id number] Closed 01/24/2022 02/23/2023 1 1 Encounter Details Date Type Department Care Team (Late st Contact Info) Description 03/06/2016 Hospital Encounter [facility] [address] [place] [phone] Social History Tobacco Use Types Packs/Day Years [...] on file Legal Sex Female 7:05 PM [employer] Gender Identity Not on file Sexual Orientation [...] Hospital Encounter [facility] Operating Room [address] [place] [address] Jonathan Jacques MD [address] [place] [address] 09/13/2024 8:20 AM CDT - 09/13/2024 10:45 AM CDT Surgery [facility] Operating Room [address] [place] [address] Jonathan Jacques MD [address] [place] [address] Right Total Hip Arthroplasty- Anterior Approach, Depuy- [...] only and have not been reviewed by [facility] Radiology. There will be no report generated by a [facility] Radiologist. Narrative RAD_MAMMO_[facility] - 01/24/2022 9:47 AM CDT EXAMINATION: Images For Reference Purposes Only us Self Referral IMG MAMMO PROCEDURES Final Resul t RAD_MAMMO_[facility] documented in this encounter Visit Diagnoses Not on filedocumented in this encounter
--- OUTSIDE RECORDS SUMMARY | 2024-09-04 00:06 | XMS_ITS | Clinical Summary ---
Author Organization [facility] Address [address] [place] [address] Care Team Providers Care Hvac R Instructor Name Role Phone Unavailable Primary Care Provider [...]
--- NOTE | 2024-09-04 00:48 | PC.NURSE ---
VORB to give 0.5mg of dilaudid IVP.
--- NOTE | 2024-09-04 00:50 | ECG_ITS ---
Test Date: 2024-09-04 01:12:01 Measurements Intervals [place] Rate: 63 P: 57 UT: 168 QRS: 29 QRSD: 96 T: 32 QT: 412 QTc: 424 Interpretive Statements SINUS RHYTHM NORMAL ECG Compared to ECG 09/03/2024 21:47:37 No significant changes Electronically Signed On 09-04-2024 10:02:44 CDT by Nelson Alejandro M.D.
[2024-09-04] MEDS: HYDROmorphone HCL INJ (*CRX) 1 MG/ML SYR 0.5 MG IV PUSH (00:55)
[2024-09-04] MEDS: SODIUM CHLORIDE 0.9% IV 1,000 ML 999 ML IV CONT (00:56)
[2024-09-04 01:23] LABS: Basophils Percent Auto 0.4 % (0.2-1.2); Eosinophils Absolute Auto 0.1 K/mm3 (0-0.3); Eosinophils Percent Auto 0.6 % (0-4.4); Hematocrit 37.6 % (37.0-47.0); Immature Granulocyte Absolute 0.04 K/mm3 (0.00-0.031); Immature Granulocyte Percent A 0.4 % (0-0.5); Lymphocytes Absolute Auto 1.07 K/mm3 (0.9-3.2); Lymphocytes Percent Auto 9.5 % (18.3-44.2); Mean Corpuscular HGB Conc 34.6 g/dl (32-36); Mean Corpuscular Hemoglobin 32.3 pg (26-34); Mean Corpuscular Volume 93.3 fl (80-100); Mean Platelet Volume 8.9 fl (7.4-10.4); Monocytes Absolute Auto 0.5 K/mm3 (0.1-0.6); Monocytes Percent Auto 4.4 % (2.6-8.5); Neutrophils Absolute Auto 9.6 K/mm3 (1.3-6.7); Neutrophils Percent Auto 84.7 % (45.5-73.1); Platelet Count Result 277 k/mm3 (150-375); Red Blood Count 4.03 M/mm3 (4.2-5.4); Red Cell Distribution Width 11.9 % (11.5-14.5); White Blood Count 11.3 K/mm3 (4.5-10.0)
[2024-09-04 01:33] LABS: Alanine Aminotransferase 23 U/L (6-35); Albumin Level 4.2 g/dL (3.5-5.1); Alkaline Phosphatase 77 U/L (38-126); Anion Gap 11 mmol/L (4-12); Aspartate Amino Transferase 21 U/L (14-36); Bilirubin,Total 0.2 mg/dL (0.2-1.3); Blood Urea Nitrogen 22 mg/dL (7-17); Calcium 9.3 mg/dL (8.4-10.2); Carbon Dioxide 24 mmol/L (22-30); Chloride 106 mmol/L (98-107); Estimated Glomerular Filt Rate > 60; Glucose 143 mg/dL (65-110); Potassium 4.1 mmol/L (3.4-5.0); Sodium 141 mmol/L (137-145)
--- NOTE | 2024-09-04 03:09 | ED_ITS ---
HPI - General Adult General Chief complaint: Syncope Stated complaint: fall Time Seen by Provider: 09/03/24 23:55 History of Present Illness HPI narrative: This is a 68-year-old female presenting after a fall. She was at target tried to avoid 2 small children running around lost her balance fell to the ground landing on her right side. She did not strike her head. She did not lose consciousness. She had significant pain in her right arm. She also has pain in her right hip although that is chronic and she is due for a hip replacement on September 13. When her was helping her up patient believes that she may have lost consciousness for before returning to her baseline. Patient was in significant pain while she is being helped up. No chest pain, difficulty breathing lower extremity edema, palpitations. Related Data Home Medications ?Medication ?Instructions ?Recorded ?Confirmed ?Last Taken ?Type aspirin 81 mg tablet,delayed 81 mg DIRECTED 06/04/23 06/04/23 Unknown History release atorvastatin 10 mg tablet 10 mg DIRECTED 06/04/23 06/04/23 Unknown History dapagliflozin propanediol 5 mg 5 mg DIRECTED 06/04/23 06/04/23 Unknown History tablet (Farxiga) lisinopril 2.5 mg tablet 2.5 mg DIRECTED 06/04/23 06/04/23 Unknown History metformin 500 mg tablet 500 mg DIRECTED 06/04/23 06/04/23 Unknown History Allergies Allergy/AdvReac Type Severity Reaction Status Date / Time No Known Allergies Allergy Verified 09/03/24 21:30 [facility] Past Medical History Medical History Diabetes Exam 2 Narrative: APPEARANCE: No apparent distress. Head: atraumatic. EYES: EOMI, NOSE: Atraumatic NECK: Trachea midline RESPIRATORY: No increased rate of breathing clear to auscultation CARDIOVASCULAR: RRR, no peripheral edema ABDOMINAL: Non-distended MUSCULOSKELETAl: Focal exam of the right upper extremity revealed no obvious deformity or bruising. Radial ulnar nerve motor function intact. Pulses are strong cap refills less than 2 seconds. Focal exam of right leg revealed pain that has passive range motion of the hip. This is the patient's baseline pain is getting worse than usual. NEURO: Alert. Moving 4/4 extremities SKIN:: Warm, dry. Normal color PSYCHIATRIC: Normal affect Course Vital Signs Vital signs: Vital Signs Temperature 97.4 F L 09/03/24 21:50 Pulse Rate 69 09/03/24 21:50 Respiratory Rate 18 09/03/24 21:50 Blood Pressure 107/52 L 09/03/24 21:50 Pulse Oximetry 100 09/03/24 21:50 Oxygen Delivery Room Air 09/03/24 21:50 Temperature 97.4 F L 09/03/24 21:50 Pulse Rate 81 09/04/24 00:42 Respiratory Rate 22 H 09/04/24 00:42 Blood Pressure 109/50 L 09/04/24 00:42 Pulse Oximetry 100 09/04/24 00:42 Oxygen Delivery Room Air 09/03/24 21:50 Medical Decision Making MDM Narrative Medical decision making narrative: -Course: 68-year-old female with severe arthritis presenting after ground level fall. Shoulder x-ray negative. Pelvic x-ray redemonstrated her severe [id number] arthritis of the right hip which she is getting replaced next week. She also had a brief syncopal episode when she was being helped up although I believe this was due to pain. Her EKG laboratory studies without high risk features. Findings were discussed with patient she is comfortable following up with her orthopedic surgeon for further management. Patient will be discharged. -DDX includes but is not limited to: Soft tissue injury, bony injury, cardiac syncope, vasovagal syncope -Co-morbidities complicating care: Severe arthritis, chronic pain Independent EKG interpretation: Rhythm [sinus], Rate [63], [place] -[normal], [place] -[normal], QRS [narrow], QTC [normal], T waves -[negative for concerning inversions], ST Segments - [Negative for concerning elevations] Final interpretations: [Normal Sinus Rhythm] Vital Signs Vital Signs: Vital Signs Temperature 97.4 F L 09/03/24 21:50 Pulse Rate 69 09/03/24 21:50 Respiratory Rate 18 09/03/24 21:50 Blood Pressure 107/52 L 09/03/24 21:50 Pulse Oximetry 100 09/03/24 21:50 Oxygen Delivery Room Air 09/03/24 21:50 Temperature 97.4 F L 09/03/24 21:50 Pulse Rate 81 09/04/24 00:42 Respiratory Rate 22 H 09/04/24 00:42 Blood Pressure 109/50 L 09/04/24 00:42 Pulse Oximetry 100 09/04/24 00:42 Oxygen Delivery Room Air 09/03/24 21:50 Lab Data 09/04/24 01:18 09/04/24 01:18 Labs: Lab Results 09/04/24 Range/Units 01:18 WBC 11.3 H (4.5-10.0) K/mm3 RBC 4.03 L (4.2-5.4) M/mm3 Hgb 13.0 (12.0-15.0) g/dL Hct 37.6 (37.0-47.0) % MCV 93.3 (80-100) fl MCH 32.3 (26-34) pg MCHC 34.6 (32-36) g/dl RDW 11.9 (11.5-14.5) % Plt Count 277 (150-375) k/mm3 MPV 8.9 (7.4-10.4) fl Immature Gran % (Auto) 0.4 (0-0.5) % Neut % (Auto) 84.7 H (45.5-73.1) % Lymph % (Auto) 9.5 L (18.3-44.2) % [place] % (Auto) 4.4 (2.6-8.5) % Eos % (Auto) 0.6 (0-4.4) % Baso % (Auto) 0.4 (0.2-1.2) % Lymph # (Auto) 1.07 (0.9-3.2) K/mm3 [place] # (Auto) 0.5 (0.1-0.6) K/mm3 Eos # (Auto) 0.1 (0-0.3) K/mm3 Baso # (Auto) 0.0 (0.0-0.1) K/mm3 Abs Immat Gran (auto) 0.04 H (0.00-0.031) K/mm3 Absolute Neuts (auto) 9.6 H (1.3-6.7) K/mm3 Absolute Nucleated RBC 0.000 (0.0-0.012) K/mm3 Nucleated RBC % 0.0 (0.0-0.2) % Sodium 141 (137-145) mmol/L Potassium 4.1 (3.4-5.0) mmol/L Chloride 106 (98-107) mmol/L Carbon Dioxide 24 (22-30) mmol/L Anion Gap 11 (4-12) mmol/L BUN 22 H (7-17) mg/dL Creatinine 0.60 L (0.7-1.0) mg/dL Estim Creat Clear Calc Not Reportable Estimated GFR > 60 (59 - ) Glucose 143 H (65-110) mg/dL Calcium 9.3 (8.4-10.2) mg/dL Total Bilirubin 0.2 (0.2-1.3) mg/dL AST 21 (14-36) U/L ALT 23 (6-35) U/L Alkaline Phosphatase 77 (38-126) U/L Total Protein 7.0 (6.3-8.2) g/dL Albumin 4.2 (3.5-5.1) g/dL Discharge Plan Discharge Clinical Impression: Fall, Acute shoulder pain Patient Disposition: Home, Self-Care Condition: Stable Instructions: Antibiotic Form Additional Instructions: You were seen in the emergency department after a fall. Please use your home pain medication. Please follow-up with your orthopedic surgeon. If you develop severe pain or any new or worsening symptoms please return to the ED for re- evaluation. Patient Language: Macanese Prescriptions: No Action metformin 500 mg tablet 500 mg DIRECTED atorvastatin 10 mg tablet 10 mg DIRECTED lisinopril 2.5 mg tablet 2.5 mg DIRECTED Farxiga 5 mg tablet 5 mg DIRECTED aspirin [Aspir-81] 81 mg Tablet,Delayed Release (Dr/Ec) 81 mg DIRECTED cephalexin 500 mg capsule 500 mg PO Q8H 7 Days Qty: 21 0RF Follow-up/Referrals: Feedrico,Prem Cooper MD [Primary Care Provider] -
== END 2024-09-04 03:34 | disposition home or self-care (01) ==
PROVIDERS: Emergency Provider Emergency Medicine; PCP Family Medicine
DX: S49.91XA Unspecified injury of right shoulder and upper arm, initial encounter (principal); E11.9 Type 2 diabetes mellitus without complications; Z79.84 Long term (current) use of oral hypoglycemic drugs; M16.11 Unilateral primary osteoarthritis, right hip; M19.011 Primary osteoarthritis, right shoulder; Z79.899 Other long term (current) drug therapy; Z79.82 Long term (current) use of aspirin; W18.39XA Other fall on same level, initial encounter
CPT/HCPCS: 36415; 71045; 73030; 73502; 80053; 85025; 93005; 96361; 96374; 99284; J1171; J7030